=== PATIENT | female | born 1940 | race Caucasian/White ===

== ENCOUNTER 2023-01-03 17:46 | Emergency (ER) | payer MEDICARE, SELFPAY ==
--- NOTE | ~2023-01-03 | XR_ITS ---
EXAMINATION: XR chest 2V DATE: 01/03/2023 18:44 INDICATION: Shortness of breath and cough TECHNIQUE: Frontal and lateral views of the chest are obtained COMPARISON: 10/30/2012 FINDINGS: The lungs are free of acute opacities. No pleural effusion or pneumothorax. The cardiomedia stinal silhouette is normal. There is moderate thoracic spondylosis. There is been interval insertion of a dual lead pacemaker of the left chest wall. IMPRESSION: 1. No acute cardiopulmonary abnormality. Reviewed, dictated and finalized at location [facility]
[2023-01-03 18:00] VITALS: BP 105/73; PULSE 77; RESP 12; TEMP 36.8; O2SAT 97
--- NOTE | 2023-01-03 18:51 | ED.GENADULT ---
HPI - General Adult General Chief complaint: Upper Respiratory Infection Stated complaint: Sinus Source: patient Mode of arrival: ambulatory Limitations: no limitations History of Present Illness HPI narrative: Patient presents for evaluation of cough for the last few weeks. Reports associated low-grade fever, mild sore throat, nausea and shortness of breath. No chills, vomiting, or diarrhea. No recent sick contacts to her knowledge. she went to [facility] approximately a 1 week ago and had negative COVID, influenza, strep testing. She contacted her primary doctor just over a week ago and received azithromycin which she completed early last week. She has tried taking Mucinex for symptoms she is a former smoker and quit around the time of symptom onset. No personal history of COVID per her reports. Related Data Allergies Allergy/AdvReac Type Severity Reaction Status Date / Time Penicillins Allergy Mild Other Verified 01/03/23 18:09 Review of Systems Review of Systems: CONSTITUTIONAL: Reports fever. Denies chills, or sweats. EYES: Denies visual changes, redness, or discharge. ENT: Reports sore throat. Denies rhinorrhea, congestion, or otalgia. CARDIOVASCULAR: Denies chest pain, palpitations, or edema. RESPIRATORY: Reports cough and SOB. GASTROINTESTINAL: Reports nausea. Denies abdominal pain, vomiting, or diarrhea. GENITOURINARY: Denies dysuria or hematuria. SKIN: Denies rash or itching. MUSCULOSKELETAL: Denies back pain, joint pain, or myalgia. NEUROLOGIC: Denies headache, numbness, dizziness, or weakness. PSYCHIATRIC: Denies anxiety or depression. [facility] Past Medical History Medical History Cardiac arrhythmia Surgical History Surgical History History of permanent cardiac pacemaker placement Family History Family History Mother Family history non-contributory Social History Social History Smoking status: Former smoker Alcohol intake: never Living arrangements: with family Gender identity (if verbalized by the patient): Female Sexual Orientation (if Verbalized by the Patient): Straight or Heterosexual Spiritual care concerns: No Exam Narrative: GENERAL: Well-appearing, well-nourished, and in no acute distress. HEAD: Normocephalic, atraumatic. EYES: PERRLA and EOMI. ENT: Nares clear, no rhinorrhea or epistaxis. Mucous membranes moist. Oropharynx without tonsillar hypertrophy exudate or other lesions. Bilateral TMs pearly awad nonbulging NECK: Supple. No adenopathy or masses. No carotid bruits or JVD CHEST: Clear to auscultation. Cough present on exam. No respiratory distress. No wheezes rales or rhonchi HEART: Regular rate and rhythm. No murmur heard. Normal peripheral pulses. ABDOMEN: Soft, nontender, nondistended, normal active bowel sounds. EXTREMITIES: Normal range of motion. No edema. SKIN: Warm, dry, no rash. NEURO: No focal deficits. Alert and oriented x3. PSYCH: Normal mood and affect. Course Course Emergency Course: This is an 82-year-old female who presented for evaluation of sick symptoms. COVID, influenza, strep were all negative. Chest x-ray negative. Will treat with prednisone due to history of smoking, recent wheezing and previous favorable response to prednisone in the past. Follow up with primary provider. Go to the ER for worsening symptoms. Pt in agreement with plan of care. Level of Care: Express Care Visit Vital Signs Vital signs: Vital Signs Temperature 36.8 C 01/03/23 18:00 Pulse Rate 77 01/03/23 18:00 Respiratory Rate 12 01/03/23 18:00 Blood Pressure 105/73 01/03/23 18:00 Pulse Oximetry 97 01/03/23 18:00 Oxygen Delivery Room Air 01/03/23 18:00 Temperature 36.8 C 01/03/23 18:00
== END 2023-01-03 19:05 | disposition home or self-care (01) ==
PROVIDERS: Emergency Provider Nurse Practitioner; PCP Internal Medicine
DX: J06.9 Acute upper respiratory infection, unspecified (principal); Z20.822 Contact with and (suspected) exposure to COVID-19; Z87.891 Personal history of nicotine dependence; Z95.0 Presence of cardiac pacemaker
CPT/HCPCS: 71046; 87081; 87426; 87804; 87880; 99213; C9803; G0463

== ENCOUNTER 2024-07-18 18:43 | Emergency (ER) | payer MEDICARE, SELFPAY ==
[2024-07-18 18:58] VITALS: BP 127/65; PULSE 71; RESP 16; TEMP 36.8; O2SAT 97
--- NOTE | 2024-07-18 19:06 | ED.URI ---
HPI - URI/Sore Throat General Chief Complaint: Upper Respiratory Infection Stated Complaint: Sinus Time Seen by Provider: 07/18/24 19:00 Source: patient Mode of arrival: ambulatory Limitations: no limitations History of Present Illness HPI Narrative: Vita is an 83-year-old female patient presenting to the clinic today with complaints of sinus congestion, headache, Sore throat,runny nose, and some chest tightness times 2-3 days. She denies any known fever or chills. History of COPD. Has a productive cough. MD elicited complaint: sore throat and nasal congestion Related Data Home Medications Medication Instructions Recorded Confirmed albuterol sulfate 90 mcg/actuation 2 puff inhalation Q4-5H 07/18/24 07/18/24 aerosol inhaler atorvastatin 80 mg tablet 80 mg PO DAILY 07/18/24 07/18/24 budesonide 160 mcg-glycopyr 9 2 inh inhalation BID 07/18/24 07/18/24 mcg-formot 4.8 mcg/actuation HFA inhaler (Breztri Aerosphere) carvedilol 3.125 mg tablet 3.125 mg PO DAILY 07/18/24 07/18/24 clopidogrel 75 mg tablet 75 mg PO DAILY 07/18/24 07/18/24 ergocalciferol (vitamin D2) 1,250 1,250 mcg PO WEEKLY 07/18/24 07/18/24 mcg (50,000 unit) capsule losartan 25 mg tablet 25 mg PO DAILY 07/18/24 07/18/24 Allergies Allergy/AdvReac Type Severity Reaction Status Date / Time Penicillins Allergy Mild Other Verified 07/18/24 19:11 Review of Systems Review of Systems: Pertinent positives per HPI. Patient denies any fever, chills, rash, headache, visual changes, dizziness, cough, shortness of breath, chest pain, palpitations, nausea, vomiting, diarrhea, constipation, abdominal pain, or any urinary issues. [facility] Past Medical History Medical History Cardiac arrhythmia Surgical History Surgical History History of permanent cardiac pacemaker placement Family History Family History Mother Family history non-contributory Social History Social History Smoking status: Former smoker Alcohol intake: never Living arrangements: with family Gender identity (if verbalized by the patient): Female Sexual Orientation (if Verbalized by the Patient): Straight or Heterosexual Spiritual care concerns: No Comments At the time of my signature, I reviewed and agree with the nursing past medical, surgical, social, and family history. There is no relevant family history pertinent to the patient complaint. Exam Narrative: General: Well-developed, well nourished, in no apparent distress Head: Normocephalic, atraumatic Eyes: Pupils equally round and reactive to light bilaterally, EOM intact, sclera and conjunctive clear, no discharge, lids normal Ears: TMs intact and congested, ear canals clear, no drainage, grossly hearing normal. Nose: Nares patent, clear nasal discharge, no inflammation, no sinus tenderness. Mouth: Oral pharynx red without lesions or masses, good dentition, MMM. Neck: Supple, trachea midline, no enlargement of anterior or posterior cervical nodes, no thyroid masses or goiter palpable. Cardio: Regular rate and rhythm, s1 and s2 normal, no murmur appreciated. Resp: Expiratory wheezing, no rhonchi, rales, or rubs Course Course Emergency Course: Portions of this record may have been created with voice recognition software. Level of Care: Express Care Visit Vital Signs Vital signs: Vital Signs Temperature 36.8 C 07/18/24 18:58 Pulse Rate 71 07/18/24 18:58 Respiratory Rate 16 07/18/24 18:58 Blood Pressure 127/65 07/18/24 18:58 Pulse Oximetry 97 07/18/24 18:58 Oxygen Delivery Room Air 07/18/24 18:58 Temperature 36.8 C 07/18/24 18:58 Pulse Rate 71 07/18/24 18:58 Respiratory Rate 16 07/18/24 18:58 Blood Pressure 127/65
[2024-07-18 19:22] LABS: EDINFLUASCREEN Negative (Negative); EDINFLUBSCREEN Negative (Negative)
[2024-07-18 19:22] LABS: EDCOVIDSCREEN Negative (Negative)
== END 2024-07-18 19:24 | disposition home or self-care (01) ==
PROVIDERS: Emergency Provider Nurse Practitioner Family; PCP Internal Medicine
DX: J44.1 Chronic obstructive pulmonary disease with (acute) exacerbation (principal); J06.9 Acute upper respiratory infection, unspecified; Z20.822 Contact with and (suspected) exposure to COVID-19; Z87.891 Personal history of nicotine dependence
CPT/HCPCS: 87635; 87804; 99213; G0463

== ENCOUNTER 2025-01-11 07:51 | Outpatient (CLI) | payer MEDICARE, SELFPAY ==
--- OUTSIDE RECORDS SUMMARY | 2025-01-11 08:04 | XMS_ITS | Clinical Summary ---
Author Organization [email or web address] Address [address] [facility] [place] [address] Care Team Providers Care Core Loader Name Role Phone Ameena Jackson MD Primary Care Provider Source Comments [email or web address],non-owned Affiliates and Associated Physician Practices is amultiple site organization consisting of ambulatory clinics and hospital sitesin [place], [place], [place] and [place]. This disclosure is being madepursuant to the Care Everywhere program and may not contain all information available regarding this patient. Last updated 18.[email or web address] Allergies Active Allergy Reactions Criticality Noted Date Comments Penicillins Rash Medium 06/11/2023 Medications * Be aware that medications may not be up to date on this document. Alwaysverify current medications with the patient. Medication Sig Dispensed Refills Start Date End Date Status acetaminophen (Tylenol) 325 MG tablet Take 2 (two) tablets by mouth every 6 hours as needed Maximum allowable Acetaminophen amount = 4 Grams (4000 mg) / 24 hours. 06/14/2023 Active aspirin (Aspirin) 81 MG chew tablet Take 1 (one) tablet by mouth once daily 30 tablet 06/14/2023 Active albuterol-ipratrop ium (Duo-Neb) 0.5-2.5 (3) MG/3ML nebulizer solution Inhale 3 mL by mouth 4 times daily for 30 days 360 mL 06/14/2023 Active atorvastatin (Lipitor) 80 MG tablet Take 1 (one) tablet by mouth at bedtime 30 tablet 06/14/2023 Active losartan (Cozaar) 25 MG tablet Take 1 (one) tablet by mouth once daily 30 tablet 06/14/2023 Active carvedilol (Coreg) 3.125 MG tablet Take 1 (one) tablet by mouth 2 times daily with morning and evening meal 60 tablet 06/14/2023 Active clopidogrel (plaVIX) 75 MG tablet Take 1 (one) tablet by mouth once daily 30 tablet 06/14/2023 Active nicotine (Nicoderm CQ) 14 MG/24HR patchIndications:T obacco use disorder Apply 1 (one) patch to skin once daily 30 patch 06/14/2023 Active Active Problems Problem Noted Date Diagnosed Date NSTEMI (non-ST elevated myocardial infarction) 0 06/11/2023 Social History Tobacco Use Types Packs/Day Years Used Date Smoking Tobacco: Some Days Cigarettes Smokeless Tobacco: Never Tobacco Cessation:Ready to Q uit: Not Asked; Counseling Given: Not Answered Overall Financial Resource Strain (CARDIA) Answe r Date Recorded How hard is it for you to pa y for the very basics like food, housing, medical care, and heating? Not hard at all 06/13/2023 [facility] - Occupational Stress Questionnaire Answer Date Recorded Do you feel stress - tense, restless, nervous, or anxious, or unable to sleep at night because your mind is troubled all the time - these days? Not at all 06/13/2023 Hunger Vital Sign Answer Date Recorded Within the past 12 months, y ou worried that your food would run out before you got the money to buy more. Never true 06/14/20 23 Within the past 12 months, t he food you bought just didn't last and you didn't have money to get more. Never true 06/14/2023 PRAPARE - Transportation Answer Date Re corded In the past 12 months, has l ack of transportation kept you from medical appointments or from getting medications? No 06/01 In the past 12 months, has l ack of transportation kept you from meetings, work, or from getting things needed for daily living? No 06/13/2023 Housing Stability Vital Sign Answer Alex e Recorded In the last 12 months, was t here a time when you were not able to pay the mortgage or rent on time? No 06/13/2023 In the last 12 months, how many places have you lived? 1 06/13/2023 In the last 12 months, was t here a time when you did not have a steady place to sleep or slept in a fci (including now)? No 06/13/2023 Sex and Gender Information Value Date Recorded Sex Assigned at Not on file Gender Identity Not on file Sexual Orientation Not on file Last Filed Vital Signs Vital Sign Reading Time Taken Comments Blood Pressure 130/86 06/14/2023 8:01 AM CDT Pulse 60 06/14/2023 8:01 AM CDT Temperature 36.5 C (97.7 F) 06/14/2023 12:41 PM CDT Respiratory Rate 16 06/14/2023 8:01 AM CDT Oxygen Saturation 94% 06/14/2023 8:01 AM CDT Inhaled Oxygen Concentration 21% 06/14/2023 9 :56 AM CDT Weight 81.6 kg (180 lb) 06/14/2023 8:49 AM CDT Height 167.6 cm (5' 6 ) 06/14/2023 8:49 AM CDT Body Mass Index 29.05 06/14/2023 8:49 AM CDT Plan of Treatment Health Maintenance Due Date Last Done Comments BONE DENSITY TESTING 1942 DTAP/TDAP/TD VACCINES (1 - Tdap) 1961 PNEUMOCOCCAL VACCINE 50+ (1 of 2 - PCV) 1961 ZOSTER VACCINE (1 of 2) 1992 Respiratory Syncytial Virus (RSV) Vaccine Pt: or over 60 yrs (1 - 1-dose 75+ series) 2017 COVID-19 VACCINE ( season) 2024 10/30/2021, 01/19/2021, 12/29/2020 INFLUENZA VACCINE (#1) 2024 2, 09/16/2021, 10/23/2019, Additional history exists DEPRESSION SCREENING 11/01/2024 MEDICARE AWV CALENDAR YEAR 2024 HEPATITIS B VACCINE Aged Out No longe r eligible based on patient's age to complete this topic HIB VACCINE Aged Out No longer eligi ble based on patient's age to complete this topic HPV VACCINE Aged Out No longer eligi ble based on patient's age to complete this topic MENINGOCOCCAL (Group B) VACCINE SHARED DECISION-MAKING Aged Out No longer eligible based on patient's age to complete this topic MENINGOCOCCAL GROUPS A/C/Y/W VACCINE Aged Out No longer eligible based on patient's age to complete this topic Medical Devices Implanted Type Area Machine Bunch Maker Device Identifier Shelf Expiration Date Model / Serial / Lot Sys Cor Stent Sng Xd Mr 3mm 20mm Dlv Sys Implanted:Qty: 1 on 06/11/2023 by Geoff Josue MD at [facility] [id number] 06/01/2024 [id number] / NA / [id number] Advance Directives * Full Code (Latest Code Status on File) Date Activated Date Inactivated Comments 06/11/2023 6:59 PM 06/14/2023 4:00 PM Care Teams Core Loader Relationship Specialty Start Date End Date Ameena Jackson MD [address] [facility] [address] [place] [address] PCP - General Internal Medicine 06/12/23
--- OUTSIDE RECORDS SUMMARY | 2025-01-11 08:04 | XMS_ITS | Data Portability ---
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 Role Phone AMEENA JACKSON Primary Care Provider BENTON FRY Door To Door Fundraising Collector Assessment Encounter Date Assessment Date Assessment LastModified by Organization Details LastModified Time 10/19/2023 10/19/2023 07/03/2022: A1C 6.0 Urine micro alb/TSH/FT4/V IT D/CBC: WNL Chol 235, TG 218, HDL 37, LDL 154 CMP: BUN 26, Glcu 118 03/23/2023: A1C 5.5 Chol 230, TG 200, HDL 35, LDL 155 Gluc 114, BUN 22 07/22/2023: A1C 6.0 Gluc 120, BUN 24, glob 2.4L, TP WNL [email or web address] Not available 10/18/2023 13:35:35 03/07/2024 03/07/2024 07/03/2022: A1C 6.0 Urine micro alb/TSH/FT4/V IT D/CBC: WNL Chol 235, TG 218, HDL 37, LDL 154 CMP: BUN 26, Glcu 118 03/23/2023: A1C 5.5 Chol 230, TG 200, HDL 35, LDL 155 Gluc 114, BUN 22 07/22/2023: A1C 6.0 Gluc 120, BUN 24, glob 2.4L, TP WNL 03/02/2024: A1C 5.9 Gluc 115, BUN 26, TP 6.2, Glob 2.4<- advised on more protein in diet TG 156, LDL 111 Not available 03/05/2024 15:38:55 07/06/2024 07/06/2024 07/03/2022: A1C 6.0 Urine micro alb/TSH/FT4/V IT D/CBC: WNL Chol 235, TG 218, HDL 37, LDL 154 CMP: BUN 26, Glcu 118 03/23/2023: A1C 5.5 Chol 230, TG 200, HDL 35, LDL 155 Gluc 114, BUN 22 07/22/2023: A1C 6.0 Gluc 120, BUN 24, glob 2.4L, TP WNL 03/02/2024: A1C 5.9 Gluc 115, BUN 26, TP 6.2, Glob 2.4<- advised on more protein in diet TG 156, LDL 111 06/30/2024: A1C 5.9 VIT D 25.5 Gluc 110, BUN 21, TP 6.2 Chol 232, TG 168, LDL 150 Not available 07/04/2024 15:01:04 10/12/2024 10/12/2024 07/03/2022: A1C 6.0 Urine micro alb/TSH/FT4/V IT D/CBC: WNL Chol 235, TG 218, HDL 37, LDL 154 CMP: BUN 26, Glcu 118 03/23/2023: A1C 5.5 Chol 230, TG 200, HDL 35, LDL 155 Gluc 114, BUN 22 07/22/2023: A1C 6.0 Gluc 120, BUN 24, glob 2.4L, TP WNL 03/02/2024: A1C 5.9 Gluc 115, BUN 26, TP 6.2, Glob 2.4<- advised on more protein in diet TG 156, LDL 111 06/30/2024: A1C 5.9 VIT D 25.5 Gluc 110, BUN 21, TP 6.2 Chol 232, TG 168, LDL 150 10/09/2024: A1C 5.8 Gluc 108, BUN 20, TP 6.2L, Glob 2.3L Not available 10/11/2024 18:56:13 Plan of Treatment Reminders Order Date Submit Date Provider Last Modified By Organization Details Last Modified Time Details Appointments Any 15 2024 08:45A Sana pineda MD Not available Not available Not available Lab vitamin D, 25-hydrox y, total, serum 2023 024 [email or web address] [facility], [address] [place], [address], 10/12/2024 11:17:05 glycohemo globin, total, blood [address], [address] [place], [address], 10/12/2024 11:17:05 microalbu min, urine [address], [address] [place], [address], 10/12/2024 11:17:05 lipid panel, serum [address], [address] [place], [address], 10/12/2024 11:17:03 CMP, serum or plasma [address], [address] [place], [address], 10/12/2024 11:17:04 CBC w/ auto diff [address], [address] [place], [address], 10/12/2024 11:17:04 TSH, serum or plasma [address], [address] [place], [address], 10/12/2024 11:17:04 T4, free, serum [address], [address] [place], [address], 10/12/2024 11:17:04 vitamin D, 25-hydrox y, total, serum [address], [address] [place], [address], 01/09/2025 10:03:31 glycohemo globin, total, blood 2023 024 [facility], [address] [place], [address], 10/09/2024 12:15:47 microalbu min, urine 2023 024 [facility], [address] [place], [address], 10/09/2024 12:34:37 lipid panel, serum 2023 024 [facility], [address] [place], [address], 10/09/2024 13:07:21 CMP, serum or plasma 2023 024 [facility], [address] [place], [address], 10/09/2024 13:07:32 CBC w/ auto diff 2023 024 [facility], [address] [place], [address], 10/09/2024 11:28:09 TSH, serum or plasma 2023 024 [facility], [address] [place], [address], 10/09/2024 13:16:42 T4, free, serum 2023 024 [facility], [address] [place], [address], 10/09/2024 13:15:42 lipid panel, serum 2023 024 [facility], [address] [place], [address], 06/30/2024 10:55:10 CMP, serum or plasma 2023 024 [facility], [address] [place], [address], 06/30/2024 10:55:13 CBC w/ auto diff 2023 024 [facility], [address] [place], [address], 06/30/2024 10:57:57 TSH, serum or plasma 2023 024 [facility], [address] [place], [address], 06/30/2024 11:35:43 T4, free, serum 2023 024 [facility], [address] [place], [address], 06/30/2024 11:09:21 vitamin D, 25-hydrox y, total, serum 2023 024 [facility], [address] [place], [address], 07/03/2024 12:12:18 glycohemo globin, total, blood 2023 024 [facility], [address] [place], [address], 06/30/2024 15:07:40 microalbu min, urine 2023 024 [facility], [address] [place], [address], 06/30/2024 11:37:30 vitamin D, 25-hydrox y, total, serum [address], [address] [place], [address], 04/17/2024 09:38:10 glycohemo globin, total, blood 2022 023 [email or web address] [facility], [address] [place], [address], 04/17/2024 09:38:10 microalbu min, urine 2022 023 [email or web address] [facility], [address] [place], [address], 04/17/2024 09:38:10 lipid panel, serum 2022 023 [email or web address] [facility], [address] [place], [address], 04/17/2024 09:38:09 CMP, serum or plasma [email or web address], [address] [place], [address], 04/17/2024 09:38:09 CBC w/ auto diff 2022 023 [email or web address] [facility], [address] [place], [address], 04/17/2024 09:38:10 TSH, serum or plasma 2022 023 [email or web address] [facility], [address] [place], [address], 10/19/2023 10:23:12 T4, free, serum 2022 023 [email or web address] [facility], [address] [place], [address], 04/17/2024 09:38:10 Referral podiatris t referral - Please call patient to schedule. 2023 024 [email or web address] Celestino Graham DPM, [address], [address], [place], [address], 12/27/2024 09:39:33 pulmonolo gist referral - Please call patient to schedule. 2023 024 [email or web address] Harriet Rico WATER TREATMENT SPECIALIST-C, [address] [facility], [address], [place], [address], 12/27/2024 09:39:33 podiatris t referral 2023 024 [email or web address] Celestino Graham DPM, [address] [facility], [address], [place], [address], 07/06/2024 14:20:14 cardiolog ist referral 2023 024 [email or web address] Benton Fry MD, [address] [facility], [facility] [address], [place], [address], 07/06/2024 14:19:55 pulmonolo gist referral 2023 024 [email or web address] Chilo Osullivan MD, [address] [place], [address], 07/06/2024 14:20:15 pulmonolo gist referral 2023 024 [email or web address] Chilo Osullivan MD, [address] [place], [address], 09/05/2024 09:52:35 podiatris t referral 2023 024 [email or web address] Celestino Graham DPM, [address] [facility], [address], [place], [address], 09/05/2024 09:53:05 cardiolog ist referral 2023 024 [email or web address] Benton Fry MD, [address] [facility], [facility] [address], [place], [address], 10/02/2024 08:49:24 podiatris t referral 2022 023 [email or web address] Celestino Graham DPM, [address] [facility], [address], [place], [address], 04/17/2024 08:28:06 cardiolog ist referral 2022 023 [email or web address] Benton Fry MD, [address] [facility], [address], [place], [address], 11/16/2023 09:17:25 pulmonolo gist referral 2022 023 Chilo Osullivan MD, [address] [facility], [place], [address], 04/17/2024 08:27:47 Procedures None recorded. Surgeries None recorded. Imaging None recorded. Medication Orders Breztri Aerospher e 160 mcg-9mcg- 4.8mcg/ac tuation HFA aerosol inhaler 2023 024 [facility]armacy #[id number], [address] [facility], [place], [address], 10/12/2024 11:16:22 Zithromax Z-Eros 250 mg tablet 2023 024 [email or web address] [facility]/Pharmacy #[id number], [address], [place], [address], 10/12/2024 10:35:48 Flonase Allergy Relief 50 mcg/actua tion nasal spray,anna pension 2023 024 [email or web address] [facility]/Pharmacy #[id number], [address], [place], [address], 04/13/2024 17:20:52 Zyrtec 10 mg tablet 2023 024 [facility]/Pharmacy #[id number], [address], [place], [address], 03/22/2024 17:02:13 Breztri Aerospher e 160 mcg-9mcg- 4.8mcg/ac tuation HFA aerosol inhaler 2023 024 [facility]/Pharmacy #[id number], [address] , [place], [address], 03/07/2024 10:02:28 Patient TargetsNo targets recorded. Patient Instructions Encounter Date Encounter Id Patient Instructions Last Modified By Organization Details Last Modified Time 10/19/2023 [id number] diabetic eye exam* [email or web address] Not avail able 04/17/2024 08:43:30 03/07/2024 [id number] dementia rating scale-2* [email or web address] Not available 03/07/2024 17:57:27 alcohol misuse* [email or web address] 2 Not available 03/07/2024 17:57:27 depression screening* [email or web address] 2 Not available 03/07/2024 17:57:27 multi-dimensiona l health assessment questionnaire* [email or web address] 2 Not available 03/07/2024 17:57:27 Personalized [place] lt Plan and Screening Recommendations Advance Directives - Do you have one? No You have indicated that you are capable of preparing your advance care directive Advance Directives - Do we have your advance directive on file in your health record? Primary Prevention/Interven tion (prevents or decreases the chance of common diseases from occurring) Smoking Risk: Smoker Refer to attached smoking cessation handouts Alcohol Misuse Screening: Negative Refer to attached alcohol cessation handout Refer to attached handout and prescription will be sent to pharmacy Decrease alcohol intake to 1 or less servings per day Continue to consider stopping alcohol and call if we can assist you Weight: Appropriate Overwei ght continue your current weight loss efforts try to lose 5% of your body weight try to lose 10% of your body weight Physical activity: Need more exercise/physical activity minimum of 10-20 minutes of activity that causes mild breathlessness/day Nutrition: Good Average Refer to attached handout Heart-Healthy Diet: After Your Visit Fall Risk (screened today): Low Intermediate Refer to attached handout Preventing Falls: After your Visit Vaccines Pneumococcal: Ordered Recommended today Recommended today, but you have declined No further needed Influenza: Your next one in the fall of this year Chronic Disease Risks Stroke: Low Risk Intermediate Risk Heart Attack: Low risk Intermediate Risk Clogging of the Arteries: Low risk Intermediate Risk Diabetes: High Risk I have no recommendations Ref er to attached handout Pre-diabetes: After Your Visit Drastically limit sugar and products made with any type of flour (bread, pasta, cereal, cookies, crackers, etc.) Secondary Prevention/Interven tion (detects treatable diseases before they may cause symptoms, disability, or ) Breast Cancer Screening with mammogram: Your next mammogram: Ordered Recommended today Recommended today, but you have declined Cervical/Uterine/Ov zaida Cancer Screening: Your next PAP/pelvic in: Referral to salesperson pets and pet supplies Recomm ended today Recommended today, but you have declined Osteoporosis Screening: Your next DEXA in: Ordered Recomme nded today Recommended today, but you have declined Date Screening Last Performed: Colon Cancer Screening: Colonoscopy Date Screening Last Performed: Patient declined Eye Disease Screening: Ordered Recommended today Dementia Risk: Low I have no recommendations Depression Screening: Negative [email or web address] Not available 03/07/2024 11:19:12 Reason for Referral Door To Door Fundraising Collector Referral for Es sential hypertension Referring Physician: Ameena Jackson Internal Medicine, Encounter Date: 10/19/2023 Order Editor Referral for Type 2 diabetes mellitus without complication Referring Physician: Constanza Leroy Medicine, Encounter Date: 10/19/2023 Sql Database Developer Referral for C hronic obstructive pulmonary disease Referring Physician: Constanza Leroy, Encounter Date: 10/19/2023 Door To Door Fundraising Collector Referral for Es sential hypertension Referring Physician: Constanza Leroy, Encounter Date: 03/07/2024 Order Editor Referral for Type 2 diabetes mellitus without complication Referring Physician: Constanza Leroy Medicine, Encounter Date: 03/07/2024 Sql Database Developer Referral for C hronic obstructive pulmonary disease Referring Physician: Constanza Leroy, Encounter Date: 03/07/2024 Door To Door Fundraising Collector Referral for Es sential hypertension Referring Physician: Constanza Leroy, Encounter Date: 07/06/2024 Order Editor Referral for Type 2 diabetes mellitus without complication Referring Physician: Ameena Jackson Internal Medicine, Encounter Date: 07/06/2024 Sql Database Developer Referral for C hronic obstructive pulmonary disease Referring Physician: Ameena Jackson Internal Medicine, Encounter Date: 07/06/2024 Order Editor Referral for Type 2 diabetes mellitus without complication Please call patient to schedule. Referring Physician: Ameena Jackson Internal Medicine, Encounter Date: 10/12/2024 Sql Database Developer Referral for C hronic obstructive pulmonary disease Please call patient to schedule. Referring Physician: Ameena Jackson Internal Medicine, Encounter Date: 10/12/2024 Results Created Date Observation Date Name Description Value Unit Range Abnormal Flag Note LastModifiedBy Organization Detail LastModifiedTime 03/02/20 24 03/02/2024 CBC/C OMPLE TE BLD COUNT W/DIF F white blood cells 6.5 x10'3 /uL 4.2-10 .8 Not Available [facility] (Lab) [address] [place], [address], 03/02/2024 10:48:27 03/02/20 24 03/02/2024 CBC/C OMPLE TE BLD COUNT W/DIF F red blood cells 4.36 x10'6 /uL 3.80-5 .20 Not Available [facility] (Lab) [address] [place], [address], 03/02/2024 10:48:27 03/02/20 24 03/02/2024 CBC/C OMPLE TE BLD COUNT W/DIF F hemoglobin 13.4 g/dL 12.0-1 5.6 Not Available [facility] (Lab) [address] [place], [address], 03/02/2024 10:48:27 03/02/20 24 03/02/2024 CBC/C OMPLE TE BLD COUNT W/DIF F hematocrit 40.6 % 35.7-4 5.7 Not Available [facility] (Lab) [address] [place], [address], 03/02/2024 10:48:27 03/02/20 24 03/02/2024 CBC/C OMPLE TE BLD COUNT W/DIF F mean red cell volume 93.1 fL 82.0-9 9.0 Not Available [facility] (Lab) [address] [place], [address], 03/02/2024 10:48:27 03/02/20 24 03/02/2024 CBC/C OMPLE TE BLD COUNT W/DIF F mean red cell hemoglobin 30.7 pg 27.0-3 3.0 Not Available [facility] (Lab) [address] [place], [address], 03/02/2024 10:48:27 03/02/20 24 03/02/2024 CBC/C OMPLE TE BLD COUNT W/DIF F mean RBC HGB concentratio n 33.0 g/dL 31.0-3 6.0 Not Available [facility] (Lab) [address] [place], [address], 03/02/2024 10:48:27 03/02/20 24 03/02/2024 CBC/C OMPLE TE BLD COUNT W/DIF F red cell distribution width 13.2 % 11.8-1 5.5 Not Available [facility] (Lab) [address] [place], [address], 03/02/2024 10:48:27 03/02/20 24 03/02/2024 CBC/C OMPLE TE BLD COUNT W/DIF F platelets 228 x10'3 /uL 150-40 0 Not Available [facility] (Lab) [address] [place], [address], 03/02/2024 10:48:27 03/02/20 24 03/02/2024 CBC/C OMPLE TE BLD COUNT W/DIF F mean platelet volume 10.5 fL 9.0-12 .4 Not Available [facility] (Lab) [address] [place], [address], 03/02/2024 10:48:27 03/02/20 24 03/02/2024 CBC/C OMPLE TE BLD COUNT W/DIF F neutrophils 51.7 % 39.0-7 2.0 Not Available [facility] (Lab) [address] [place], [address], 03/02/2024 10:48:27 03/02/20 24 03/02/2024 CBC/C OMPLE TE BLD COUNT W/DIF F lymphocytes 34.7 % 16.0-4 7.0 Not Available [facility] (Lab) [address] [place], [address], 03/02/2024 10:48:27 03/02/20 24 03/02/2024 CBC/C OMPLE TE BLD COUNT W/DIF F monocytes 9.0 % 5.0-12 .0 Not Available [facility] (Lab) [address] [place], [address], 03/02/2024 10:48:27 03/02/20 24 03/02/2024 CBC/C OMPLE TE BLD COUNT W/DIF F eosinophils 3.7 % 1.0-7. 0 Not Available [facility] (Lab) [address] [place], [address], 03/02/2024 10:48:27 03/02/20 24 03/02/2024 CBC/C OMPLE TE BLD COUNT W/DIF F basophils 0.6 % 0.0-2. 0 Not Available [facility] (Lab) [address] [place], [address], 03/02/2024 10:48:27 03/02/20 24 03/02/2024 CBC/C OMPLE TE BLD COUNT W/DIF F immature granulocytes 0.3 % 0.00-0 .50 Not Available [facility] (Lab) [address] [place], [address], 03/02/2024 10:48:27 03/02/20 24 03/02/2024 CBC/C OMPLE TE BLD COUNT W/DIF F neutrophils, absolute count 3.33 x10'3 /uL 1.5-8. 0 Not Available [facility] (Lab) [address] [place], [address], 03/02/2024 10:48:27 03/02/20 24 03/02/2024 CBC/C OMPLE TE BLD COUNT W/DIF F lymphocytes, absolute count 2.24 x10'3 /uL 1.07-3 .43 Not Available [facility] (Lab) [address] [place], [address], 03/02/2024 10:48:27 03/02/20 24 03/02/2024 CBC/C OMPLE TE BLD COUNT W/DIF F monocytes, absolute count 0.58 x10'3 /uL 0.29-0 .99 Not Available [facility] (Lab) [address] [place], [address], 03/02/2024 10:48:27 03/02/20 24 03/02/2024 CBC/C OMPLE TE BLD COUNT W/DIF F eosinophils, absolute count 0.24 x10'3 /uL 0.02-0 .53 Not Available [facility] (Lab) [address] [place], [address], 03/02/2024 10:48:27 03/02/20 24 03/02/2024 CBC/C OMPLE TE BLD COUNT W/DIF F basophils, absolute count 0.04 x10'3 /uL 0.01-0 .08 Not Available [facility] (Lab) [address] [place], [address], 03/02/2024 10:48:27 03/02/20 24 03/02/2024 CBC/C OMPLE TE BLD COUNT W/DIF F immature granulocytes ,absolute 0.02 x10'3 /uL 0.00-0 .05 Not Available [facility] (Lab) [address] [place], [address], 03/02/2024 10:48:27 03/02/20 24 03/02/2024 CBC/C OMPLE TE BLD COUNT W/DIF F nucleated red blood cells 0.0 % -0 Not Available [facility] (Lab) [address] [place], [address], 03/02/2024 10:48:27 03/02/20 24 03/02/2024 CBC/C OMPLE TE BLD COUNT W/DIF F NRBC# 0.00 x10'3 /uL Not Available [facility] (Lab) [address] [place], [address], 03/02/2024 10:48:27 03/02/20 24 03/02/2024 LIPID PANEL cholesterol 191 mg/dL 140-19 9 NIH NIKOLE NSUS RECOM MENDA TION FOR TONYA STERO L: ADULT CHILD LOW RISK: <200 <170 BORDE RLINE : <200- 239 ----- HIGH RISK: >240 >200 Not Available [facility] (Lab) [address] [place], [address], 03/02/2024 11:15:57 03/02/20 24 03/02/2024 LIPID PANEL triglyceride s 156 mg/dL 0-150 high NIH NIKOLE NSUS REPOR T RECOM MENDA TION FOR TRIGL YCERI KAYLEN: ADULT CHILD LOW RISK: <150 ----- BODER LINE: 150-1 99 ----- HIGH RISK: >200 ----- Not Available [facility] (Lab) [address] [place], [address], 03/02/2024 11:15:57 03/02/20 24 03/02/2024 LIPID PANEL HDL cholesterol 49 mg/dL 40- Not Available [facility] (Lab) [address] [place], [address], 03/02/2024 11:15:57 03/02/20 24 03/02/2024 LIPID PANEL LDL cholesterol, calculated 111 mg/dL 0-130 NIH NIKOLE NSUS REPOR T RECOM MENDA TIONS FOR LDL: ADULT CHILD LOW RISK <130 <110 (OPTI MAL LDL) <100 ----- BORDE RLINE : 130-1 59 ----- HIGH RISK: >160 >130 A TRIGL YCERI DE RESUL T >400 INVAL IDATE S THE CALCU LATIO N FOR LDL FRACT IONAT ION - THE LDL RESUL T WILL NOT BE REPOR WARREN. Not Available [facility] (Lab) [address] [place], [address], 03/02/2024 11:15:57 03/02/20 24 03/02/2024 COMPR EHENS EDEL METAB OLIC PANEL sodium 140 mmol/ L 137-14 5 Not Available [facility] (Lab) [address] [place], [address], 03/02/2024 11:16:03 03/02/20 24 03/02/2024 COMPR EHENS EDEL METAB OLIC PANEL potassium 4.5 mmol/ L 3.5-5. 1 Not Available [facility] (Lab) [address] [place], [address], 03/02/2024 11:16:03 03/02/20 24 03/02/2024 COMPR EHENS EDEL METAB OLIC PANEL chloride 105 mmol/ L 98-107 Not Available [facility] (Lab) [address] [place], [address], 03/02/2024 11:16:03 03/02/20 24 03/02/2024 COMPR EHENS EDEL METAB OLIC PANEL carbon dioxide 31 mmol/ L 22-30 high Not Available [facility] (Lab) [address] [place], [address], 03/02/2024 11:16:03 03/02/20 24 03/02/2024 COMPR EHENS EDEL METAB OLIC PANEL anion gap 8.5 mmol/ L 14-22 low Not Available [facility] (Lab) [address] [place], [address], 03/02/2024 11:16:03 03/02/20 24 03/02/2024 COMPR EHENS EDEL METAB OLIC PANEL glucose 115 mg/dL 70-99 high Not Available [facility] (Lab) [address] [place], [address], 03/02/2024 11:16:03 03/02/20 24 03/02/2024 COMPR EHENS EDEL METAB OLIC PANEL BUN 26 mg/dL 8-19 high Not Available [facility] (Lab) [address] [place], [address], 03/02/2024 11:16:03 03/02/20 24 03/02/2024 COMPR EHENS EDEL METAB OLIC PANEL creatinine 0.82 mg/dL 0.66-1 .25 Not Available [facility] (Lab) [address] [place], [address], 03/02/2024 11:16:03 03/02/20 24 03/02/2024 COMPR EHENS EDEL METAB OLIC PANEL GFR >60 Refer ence Range : Costilla ge GFR Healt hy Adult : >60 mL/mi n/1.7 3 m2 Chron ic Kidne y Disea se: 15-60 mL/mi n/1.7 3 m2 Kidne y Failu re: <15/m L/min /1.73 m2 www.n iddk. nih.g ov The MDRD study equat ion has not been valid ated in child graciela <18 years of age; pregn ant women ; the elder ly >85 years of age; or in some racia l or ethni c subgr oups, such as Hispa nics. Outsi de the valid ated ronnell eters , estim ated GFR is less accur ate, requi ring clini [place] judgm ent on a case- by-ca se basis . Clini [place] inter preta tion for other races and ages must be made by the clini rich. The MDRD study equat ion has not been valid ated for the evalu ation of serum creat inine relat ed to nutri candido l statu s or medic ation usage . For perso ns <18 years of age, a pedia tric GFR calcu lator is avail able on the [facility] websi te: https ://ww w.kid ric.o rg/pr ofess ional s/kdo qi/gf r_cal culat or Not Available [facility] (Lab) [address] [place], [address], 03/02/2024 11:16:03 03/02/20 24 03/02/2024 COMPR EHENS EDEL METAB OLIC PANEL alkaline phosphatase 51 U/L 38-126 Not Available [facility] (Lab) [address] [place], [address], 03/02/2024 11:16:03 03/02/20 24 03/02/2024 COMPR EHENS EDEL METAB OLIC PANEL alanine aminotransfe rase 27 U/L 0-35 Not Available [facility] (Lab) [address] [place], [address], 03/02/2024 11:16:03 03/02/20 24 03/02/2024 COMPR EHENS EDEL METAB OLIC PANEL aspartate aminotransfe rase 29 U/L 15-37 Not Available [facility] (Lab) [address] [place], [address], 03/02/2024 11:16:03 03/02/20 24 03/02/2024 COMPR EHENS EDEL METAB OLIC PANEL bilirubin, total 0.60 mg/dL 0.20-1 .30 Not Available [facility] (Lab) [address] [place], [address], 03/02/2024 11:16:03 03/02/20 24 03/02/2024 COMPR EHENS EDEL METAB OLIC PANEL calcium 9.2 mg/dL 8.4-10 .2 Not Available [facility] (Lab) [address] [place], [address], 03/02/2024 11:16:03 03/02/20 24 03/02/2024 COMPR EHENS EDEL METAB OLIC PANEL total protein 6.2 g/dL 6.3-8. 2 low Not Available [facility] (Lab) [address] [place], [address], 03/02/2024 11:16:03 03/02/20 24 03/02/2024 COMPR EHENS EDEL METAB OLIC PANEL albumin 3.8 g/dL 3.0-4. 4 Not Available [facility] (Lab) [address] [place], [address], 03/02/2024 11:16:03 03/02/20 24 03/02/2024 COMPR EHENS EDEL METAB OLIC PANEL globulin 2.4 g/dL 2.6-4. 2 low Not Available [facility] (Lab) [address] [place], [address], 03/02/2024 11:16:03 03/02/20 24 03/02/2024 COMPR EHENS EDEL METAB OLIC PANEL A/G ratio 1.6 ratio 1.0-2. 0 Not Available [facility] (Lab) [address] [place], [address], 03/02/2024 11:16:03 03/02/20 24 03/02/2024 TSH thyroid-stim ulating hormone 2.210 uIU/m L 0.465- 4.680 Not Available [facility] (Lab) [address] [place], [address], 03/02/2024 11:40:00 03/02/20 24 03/02/2024 T4 FREE free T4 1.00 NG/dL 0.78-2 .19 Not Available [facility] (Lab) [address] [place], [address], 03/02/2024 11:40:10 03/02/20 24 03/02/2024 VITAM IN D 25-HY DROXY [id number] 31.5 NG/mL 30-100 Vitam in D Statu s: Defic ient: <20 ng/mL Insuf ficie nt: 20-29 ng/mL Suffi cient : 30-10 0 ng/mL Not Available [facility] (Lab) [address] [place], [address], 03/02/2024 12:12:53 03/02/20 24 03/02/2024 HEMOG LOBIN A1C HA1C 5.9 % 4.0-6. 0 Diabe madyson Scree vicente Crite ascencion: <5.7% Consi stent with absen ce of diabe madyson 5.7-6 .4% Consi stent with incre ased risk for diabe madyson (pred iabet es) >OR=6 .5% Consi stent with diabe madyson REFER ENCE: Diabe madyson Care 2016, 39(Alejo ppl.1 ):s13 -s22 Not Available [facility] (Lab) [address] [place], [address], 03/02/2024 16:24:47 03/02/20 24 03/02/2024 MICRO ALBUM IN RANDO M URINE microalbumin , urine <6.0 mg/L 0.0-16 .6 Not Available [facility] (Lab) [address] [place], [address], 03/02/2024 16:44:32 06/30/20 24 06/30/2024 LIPID PANEL cholesterol 232 mg/dL 140-19 9 high NIH NIKOLE NSUS RECOM MENDA TION FOR TONYA STERO L: ADULT CHILD LOW RISK: <200 <170 BORDE RLINE : <200- 239 ----- HIGH RISK: >240 >200 Not Available [facility] (Lab) [address] [place], [address], 06/30/2024 10:55:10 06/30/20 24 06/30/2024 LIPID PANEL triglyceride s 168 mg/dL 0-150 high NIH NIKOLE NSUS REPOR T RECOM MENDA TION FOR TRIGL YCERI KAYLEN: ADULT CHILD LOW RISK: <150 ----- BODER LINE: 150-1 99 ----- HIGH RISK: >200 ----- Not Available [facility] (Lab) [address] [place], [address], 06/30/2024 10:55:10 06/30/20 24 06/30/2024 LIPID PANEL HDL cholesterol 48 mg/dL 40- Not Available [facility] (Lab) [address] [place], [address], 06/30/2024 10:55:10 06/30/20 24 06/30/2024 LIPID PANEL LDL cholesterol, calculated 150 mg/dL 0-130 high NIH NIKOLE NSUS REPOR T RECOM MENDA TIONS FOR LDL: ADULT CHILD LOW RISK <130 <110 (OPTI MAL LDL) <100 ----- BORDE RLINE : 130-1 59 ----- HIGH RISK: >160 >130 A TRIGL YCERI DE RESUL T >400 INVAL IDATE S THE CALCU LATIO N FOR LDL FRACT IONAT ION - THE LDL RESUL T WILL NOT BE REPOR WARREN. Not Available [facility] (Lab) [address] [place], [address], 06/30/2024 10:55:10 06/30/20 24 06/30/2024 COMPR EHENS EDEL METAB OLIC PANEL sodium 139 mmol/ L 137-14 5 Not Available [facility] (Lab) [address] [place], [address], 06/30/2024 10:55:13 06/30/20 24 06/30/2024 COMPR EHENS EDEL METAB OLIC PANEL potassium 4.3 mmol/ L 3.5-5. 1 Not Available [facility] (Lab) [address] [place], [address], 06/30/2024 10:55:13 06/30/20 24 06/30/2024 COMPR EHENS EDEL METAB OLIC PANEL chloride 110 mmol/ L 98-107 high Not Available [facility] (Lab) [address] [place], [address], 06/30/2024 10:55:13 06/30/20 24 06/30/2024 COMPR EHENS EDEL METAB OLIC PANEL carbon dioxide 28 mmol/ L 22-30 Not Available [facility] (Lab) [address] [place], [address], 06/30/2024 10:55:13 06/30/20 24 06/30/2024 COMPR EHENS EDEL METAB OLIC PANEL anion gap 5.3 mmol/ L 14-22 low Not Available [facility] (Lab) [address] [place], [address], 06/30/2024 10:55:13 06/30/20 24 06/30/2024 COMPR EHENS EDEL METAB OLIC PANEL glucose 110 mg/dL 70-99 high Not Available [facility] (Lab) [address] [place], [address], 06/30/2024 10:55:13 06/30/20 24 06/30/2024 COMPR EHENS EDEL METAB OLIC PANEL BUN 21 mg/dL 8-19 high Not Available [facility] (Lab) [address] [place], [address], 06/30/2024 10:55:13 06/30/20 24 06/30/2024 COMPR EHENS EDEL METAB OLIC PANEL creatinine 0.87 mg/dL 0.66-1 .25 Not Available [facility] (Lab) [address] [place], [address], 06/30/2024 10:55:13 06/30/20 24 06/30/2024 COMPR EHENS EDEL METAB OLIC PANEL GFR >60 Refer ence Range : Costilla ge GFR Healt hy Adult : >60 mL/mi n/1.7 3 m2 Chron ic Kidne y Disea se: 15-60 mL/mi n/1.7 3 m2 Kidne y Failu re: <15/m L/min /1.73 m2 www.n iddk. nih.g ov The MDRD study equat ion has not been valid ated in child graciela <18 years of age; pregn ant women ; the elder ly >85 years of age; or in some racia l or ethni c subgr oups, such as Kristine nics. Outsi de the valid ated ronnell eters , estim ated GFR is less accur ate, requi ring clini [place] jud[facility] ent on a case- by-ca se basis . Clini [place] inter preta tion for other races and ages must be made by the clini rich. The MDRD study equat ion has not been valid ated for the evalu ation of serum creat inine relat ed to nutri candido l statu s or medic ation usage . For perso ns <18 years of age, a pedia tric GFR calcu lator is avail able on the [facility] websi te: https ://indio larios.babatunde rg/pr ofess ional s/kdo qi/gf r_cal culat or Not Available [facility] (Lab) [address] [place], [address], 06/30/2024 10:55:13 06/30/20 24 06/30/2024 COMPR EHENS EDEL METAB OLIC PANEL alkaline phosphatase 40 U/L 38-126 Not Available [facility] (Lab) [address] [place], [address], 06/30/2024 10:55:13 06/30/20 24 06/30/2024 COMPR EHENS EDEL METAB OLIC PANEL alanine aminotransfe rase 17 U/L 0-35 Not Available [facility] (Lab) [address] [place], [address], 06/30/2024 10:55:13 06/30/20 24 06/30/2024 COMPR EHENS EDEL METAB OLIC PANEL aspartate aminotransfe rase 19 U/L 15-37 Not Available [facility] (Lab) [address] [place], [address], 06/30/2024 10:55:13 06/30/20 24 06/30/2024 COMPR EHENS EDEL METAB OLIC PANEL bilirubin, total 0.50 mg/dL 0.20-1 .30 Not Available [facility] (Lab) [address] [place], [address], 06/30/2024 10:55:13 06/30/20 24 06/30/2024 COMPR EHENS EDEL METAB OLIC PANEL calcium 8.9 mg/dL 8.4-10 .2 Not Available [facility] (Lab) [address] [place], [address], 06/30/2024 10:55:13 06/30/20 24 06/30/2024 COMPR EHENS EDEL METAB OLIC PANEL total protein 6.2 g/dL 6.3-8. 2 low Not Available [facility] (Lab) [address] [place], [address], 06/30/2024 10:55:13 06/30/20 24 06/30/2024 COMPR EHENS EDEL METAB OLIC PANEL albumin 3.7 g/dL 3.0-4. 4 Not Available [facility] (Lab) [address] [place], [address], 06/30/2024 10:55:13 06/30/20 24 06/30/2024 COMPR EHENS EDEL METAB OLIC PANEL globulin 2.5 g/dL 2.6-4. 2 low Not Available [facility] (Lab) [address] [place], [address], 06/30/2024 10:55:13 06/30/20 24 06/30/2024 COMPR EHENS EDEL METAB OLIC PANEL A/G ratio 1.5 ratio 1.0-2. 0 Not Available [facility] (Lab) [address] [place], [address], 06/30/2024 10:55:13 06/30/20 24 06/30/2024 CBC/C OMPLE TE BLD COUNT W/DIF F white blood cells 5.7 x10'3 /uL 4.2-10 .8 Not Available [facility] (Lab) [address] [place], [address], 06/30/2024 10:57:57 06/30/20 24 06/30/2024 CBC/C OMPLE TE BLD COUNT W/DIF F red blood cells 4.52 x10'6 /uL 3.80-5 .20 Not Available [facility] (Lab) [address] [place], [address], 06/30/2024 10:57:57 06/30/20 24 06/30/2024 CBC/C OMPLE TE BLD COUNT W/DIF F hemoglobin 13.7 g/dL 12.0-1 5.6 Not Available [facility] (Lab) [address] [place], [address], 06/30/2024 10:57:57 06/30/20 24 06/30/2024 CBC/C OMPLE TE BLD COUNT W/DIF F hematocrit 41.9 % 35.7-4 5.7 Not Available [facility] (Lab) [address] [place], [address], 06/30/2024 10:57:57 06/30/20 24 06/30/2024 CBC/C OMPLE TE BLD COUNT W/DIF F mean red cell volume 92.7 fL 82.0-9 9.0 Not Available [facility] (Lab) [address] [facility] [place] [place], [address], 06/30/2024 10:57:57 06/30/20 24 06/30/2024 CBC/C OMPLE TE BLD COUNT W/DIF F mean red cell hemoglobin 30.3 pg 27.0-3 3.0 Not Available [facility] (Lab) [address] [facility] [place] [place], [address], 06/30/2024 10:57:57 06/30/20 24 06/30/2024 CBC/C OMPLE TE BLD COUNT W/DIF F mean RBC HGB concentratio n 32.7 g/dL 31.0-3 6.0 Not Available [facility] (Lab) [address] [place], [address], 06/30/2024 10:57:57 06/30/20 24 06/30/2024 CBC/C OMPLE TE BLD COUNT W/DIF F red cell distribution width 13.3 % 11.8-1 5.5 Not Available [facility] (Lab) [address] [place], [address], 06/30/2024 10:57:57 06/30/20 24 06/30/2024 CBC/C OMPLE TE BLD COUNT W/DIF F platelets 240 x10'3 /uL 150-40 0 Not Available [facility] (Lab) [address] [place], [address], 06/30/2024 10:57:57 06/30/20 24 06/30/2024 CBC/C OMPLE TE BLD COUNT W/DIF F mean platelet volume 10.2 fL 9.0-12 .4 Not Available [facility] (Lab) [address] [place], [address], 06/30/2024 10:57:57 06/30/20 24 06/30/2024 CBC/C OMPLE TE BLD COUNT W/DIF F neutrophils 56.2 % 39.0-7 2.0 Not Available [facility] (Lab) [address] [place], [address], 06/30/2024 10:57:57 06/30/20 24 06/30/2024 CBC/C OMPLE TE BLD COUNT W/DIF F lymphocytes 31.5 % 16.0-4 7.0 Not Available [facility] (Lab) [address] [place], [address], 06/30/2024 10:57:57 06/30/20 24 06/30/2024 CBC/C OMPLE TE BLD COUNT W/DIF F monocytes 8.0 % 5.0-12 .0 Not Available [facility] (Lab) [address] [place], [address], 06/30/2024 10:57:57 06/30/20 24 06/30/2024 CBC/C OMPLE TE BLD COUNT W/DIF F eosinophils 3.5 % 1.0-7. 0 Not Available [facility] (Lab) [address] [place], [address], 06/30/2024 10:57:57 06/30/20 24 06/30/2024 CBC/C OMPLE TE BLD COUNT W/DIF F basophils 0.5 % 0.0-2. 0 Not Available [facility] (Lab) [address] [place], [address], 06/30/2024 10:57:57 06/30/20 24 06/30/2024 CBC/C OMPLE TE BLD COUNT W/DIF F immature granulocytes 0.3 % 0.00-0 .50 Not Available [facility] (Lab) [address] [place], [address], 06/30/2024 10:57:57 06/30/20 24 06/30/2024 CBC/C OMPLE TE BLD COUNT W/DIF F neutrophils, absolute count 3.22 x10'3 /uL 1.5-8. 0 Not Available [facility] (Lab) [address] [place], [address], 06/30/2024 10:57:57 06/30/20 24 06/30/2024 CBC/C OMPLE TE BLD COUNT W/DIF F lymphocytes, absolute count 1.81 x10'3 /uL 1.07-3 .43 Not Available [facility] (Lab) [address] [place], [address], 06/30/2024 10:57:57 06/30/20 24 06/30/2024 CBC/C OMPLE TE BLD COUNT W/DIF F monocytes, absolute count 0.46 x10'3 /uL 0.29-0 .99 Not Available [facility] (Lab) [address] [place], [address], 06/30/2024 10:57:57 06/30/20 24 06/30/2024 CBC/C OMPLE TE BLD COUNT W/DIF F eosinophils, absolute count 0.20 x10'3 /uL 0.02-0 .53 Not Available [facility] (Lab) [address] [place], [address], 06/30/2024 10:57:57 06/30/20 24 06/30/2024 CBC/C OMPLE TE BLD COUNT W/DIF F basophils, absolute count 0.03 x10'3 /uL 0.01-0 .08 Not Available [facility] (Lab) [address] [place], [address], 06/30/2024 10:57:57 06/30/20 24 06/30/2024 CBC/C OMPLE TE BLD COUNT W/DIF F immature granulocytes ,absolute 0.02 x10'3 /uL 0.00-0 .05 Not Available [facility] (Lab) [address] [place], [address], 06/30/2024 10:57:57 06/30/20 24 06/30/2024 CBC/C OMPLE TE BLD COUNT W/DIF F nucleated red blood cells 0.0 % -0 Not Available [facility] (Lab) [address] [place], [address], 06/30/2024 10:57:57 06/30/20 24 06/30/2024 CBC/C OMPLE TE BLD COUNT W/DIF F NRBC# 0.00 x10'3 /uL Not Available [facility] (Lab) [address] [place], [address], 06/30/2024 10:57:57 06/30/20 24 06/30/2024 T4 FREE free T4 0.94 NG/dL 0.78-2 .19 Not Available [facility] (Lab) [address] [place], [address], 06/30/2024 11:09:21 06/30/20 24 06/30/2024 VITAM IN D 25-HY DROXY [id number] 25.5 NG/mL 30-100 low Vitam in D Statu s: Defic ient: <20 ng/mL Insuf ficie nt: 20-29 ng/mL Suffi cient : 30-10 0 ng/mL Not Available [facility] (Lab) [address] [place], [address], 06/30/2024 11:14:21 06/30/20 24 06/30/2024 TSH thyroid-stim ulating hormone 1.350 uIU/m L 0.465- 4.680 Not Available [facility] (Lab) [address] [place], [address], 06/30/2024 11:35:43 06/30/20 24 06/30/2024 MICRO ALBUM IN RANDO M URINE microalbumin , urine 14.8 mg/L 0.0-16 .6 Not Available [facility] (Lab) [address] [place], [address], 06/30/2024 11:37:30 06/30/20 24 06/30/2024 HEMOG LOBIN A1C HA1C 5.9 % 4.0-6. 0 Diabe madyson Scree vicente Crite ascencion: <5.7% Consi stent with absen ce of diabe madyson 5.7-6 .4% Consi stent with incre ased risk for diabe madyson (pred iabet es) >OR=6 .5% Consi stent with diabe madyson REFER ENCE: Diabe madyson Care 2016, 39(Alejo ppl.1 ):s13 -s22 Not Available [facility] (Lab) [address] [place], [address], 06/30/2024 15:07:40 Result Notes None recorded. Problems Name Problem SNOMED Code Status Onset Date Resolution Date Notes Provider Name and Address Organization Details Recorded Time Essential hypertension 30281112 Active 2022 Not Available [facility] 3 00:14:21 Chronic obstructive pulmonary disease 50101486 Active 2022 Not Available [facility] 3 00:14:21 Smoker 53290963 Active 2022 Not Available [facility] 3 00:14:21 Coronary arteriosclero sis 97451810 Active 2022 Not Available [facility] 3 00:14:21 COVID-19 009130163 Active 2023 Kayla Heck RN null, [facility] 4 12:08:52 Hypothyroidis m 85020111 Active 2023 FRANK Salgado, [facility] 4 16:02:59 Type 2 diabetes mellitus without complication 620788668 Active 2021 Not Available [facility] 3 00:14:21 Vitamin D deficiency 12494248 Active 2021 Not Available [facility] 3 00:14:21 Multiple joint pain 37555060 Active 2021 Not Available [facility] 3 00:14:21 Upper respiratory infection 98458730 Active 2022 Not Available [facility] 3 00:14:21 Hyperlipidemi a 18491304 Active 2021 Not Available [facility] 3 00:14:21 Hyperglycemia 42664800 Active 2021 Not Available [facility] 3 00:14:21 Notes:02-15-18 pt refuses, PA P, mammogram, bone density and colonoscopy Some problems listed in Document: #[id number] could not be added to this patient's chart. Please review this document and add these problems to the patient's chart manually as needed. Problem Notes None recorded. Procedures Surgical History Date Name Laterality Status Provider Name and Address Organization Details Recorded Time 03/07/20 24 Medicare Wellness CPT Code, subsequent completed Chaim Lugo LPN [facility] [employer] [facility] 03/07/2024 10:12:22 03/07/20 24 Advanced Care Planning completed Chaim Lugo LPN [facility] [employer] [place] [facility] 03/07/2024 10:30:32 06/11/20 23 Cardiac Cath completed MAGDIEL Louis [facility] 06/22/2023 11:04:07 06/11/20 23 Cardiac Stent Placement completed MAGDIEL Louis [facility] [employer] [facility] 06/22/2023 11:04:00 10/01/20 09 Date of Last Colonoscopy completed Not Available [facility] 12/30/2022 03:17:42 Cataract Surgery completed Not Available [facility] 12/30/2022 03:17:45 Pacemaker monitr audible/vis completed Not Available [facility] 12/30/2022 03:17:45 Imaging Results None recorded. Procedure Notes None recorded. Medical Equipment None Reported. Allergies Allergen ID Allergen Name Allergen Category Reaction Reaction Severity Criticality Documentation Date Start Date Code Code System Note Provider Name and Address Organization Details Recorded Time 6382 Product containin g penicilli n (product) medicatio n Not available Not available Not available 12/30/2022 [id number] SNOMED Not Available [facility] 3 03:36:19 Medications Name Sig Start Date Stop Date Status Note LastModified by Organization Details LastModified Time metformin 500 mg tablet TAKE 1 TABLET BY MOUTH TWICE A DAY 06/22 completed patient not taking Not Available Not Available Not Available atorvasta tin 80 mg tablet TAKE 1 TABLET BY MOUTH EVERYDAY AT BEDTIME active Not Available Not Available No t Available acetamino phen 325 mg tablet Take 2 tablets every 6 hours by oral route as needed. active Not Available Not Available No t Available clindamyc in HCl 300 mg capsule TAKE 1 CAPSULE BY MOUTH EVERY 6 HOURS UNTIL GONE 10/12 completed Not Available Not Available Not Available cetirizin e 10 mg tablet TAKE 1 TABLET BY MOUTH EVERY DAY 2023 active Not Available Not Available Not Avai lable azithromy regine 250 mg tablet TAKE 2 TABLETS BY MOUTH TODAY, THEN TAKE 1 TABLET DAILY FOR 4 DAYS DIRECTED 10/12 completed Not Available Not Available Not Available prednison e 20 mg tablet TAKE 2 TABLETS BY MOUTH EVERY DAY FOR 5 DAYS 10/12 completed Not Available Not Available Not Available clopidogr el 75 mg tablet TAKE 1 TABLET BY MOUTH EVERY DAY active Not Available Not Available No t Available sulfameth oxazole 800 mg-trimet hoprim 160 mg tablet TAKE 1 TABLET BY MOUTH TWICE A DAY FOR 10 DAYS 03/30 completed Not Available Not Available Not Available tramadol 50 mg tablet TAKE 1 OR 2 TABLETS BY MOUTH EVERY 4 TO 6 HOURS NEEDED PAIN active Not Available Not Available No t Available carvedilo l 3.125 mg tablet TAKE 1 TABLET BY MOUTH TWICE A DAY active Not Available Not Available No t Available benzonata te 100 mg capsule TAKE 1 CAPSULE BY MOUTH 3 TIME A DAY NEEDED FOR COUGH 03/30 completed Not Available Not Available Not Available prednison e 50 mg tablet TAKE 1 TABLET BY MOUTH DAILY 03/30 completed Not Available Not Available Not Available losartan 25 mg tablet TAKE 1 TABLET BY MOUTH EVERY DAY active Not Available Not Available No t Available aspirin 81 mg chewable tablet TAKE 1 TABLET BY MOUTH EVERY DAY active Not Available Not Available No t Available lisinopri l 5 mg tablet Take 1 tablet every day by oral route. active Not Available Not Available No t Available ergocalci ferol (vitamin D2) 1,250 mcg (50,000 unit) capsule TAKE 1 CAPSULE BY MOUTH ONE TIME PER WEEK 10/12 completed Not Available Not Available Not Available Cheratuss in AC 10 mg-100 mg/5 mL oral liquid 10/14 completed Not Available Not Available Not Available methylpre dnisolone 4 mg tablets in a dose pack use as directed 02/17 completed Not Available Not Available Not Available albuterol sulfate HFA 90 mcg/actua tion aerosol inhaler INHALE 2 PUFFS BY MOUTH EVERY 4 HOURS NEEDED active Not Available Not Available No t Available fluticaso ne propionat e 50 mcg/actua tion nasal spray,anna pension SPRAY 1 SPRAY BY INTRANAS AL ROUTE EVERY DAY 2023 active Not Available Not Available Not Avai lable doxycycli ne hyclate 100 mg tablet TAKE 1 TABLET BY MOUTH TWICE A DAY FOR 10 DAYS 03/30 completed Not Available Not Available Not Available loratadin e 10 mg tablet TAKE 1 TABLET BY MOUTH EVERY DAY NEEDED 08/15 completed Not Available Not Available Not Available rosuvasta tin 10 mg tablet TAKE 1 TABLET BY MOUTH EVERY DAY 06/22 completed stopped in hospital Not Available Not Available Not Available rosuvasta tin 20 mg tablet Take 1 tablet every day by oral route. 10/03 completed Not Available Not Available Not Available rosuvasta tin 40 mg tablet Take 1 tablet every day by oral route. active Not Available Not Available No t Available vitamin E 1 TAB PO QD 2016 active Not Available Not Available Not Avai lable folic acid 1 TAB PO QD 2017 active Not Available Not Available Not Avai lable Vitamin D3 active Not Available Not Available Not Available ipratropi um 0.5 mg-albute rol 2.5 mg/2.5 mL solution for nebulizat ion inhale one vial by mouth 4times a day as needed active Not Available Not Available No t Available Fluzone High-Dose 2019-20 (PF) 180 mcg/0.5 mL intramusc ular syringe TO BE ADMINIST ERED BY PHARMACI ST FOR IMMUNIZA TION 05/14 completed Not Available Not Available Not Available Breztri Aerospher e 160 mcg-9mcg- 4.8mcg/ac tuation HFA aerosol inhaler Inhale 2 puffs twice a day by inhalati on route. active Not Available Not Available No t Available Paxlovid 300 mg (150 mg x 2)-100 mg tablets in a dose pack USE DIRECTED 03/07 completed Not Available Not Available Not Available Vitals Date Recorded Body height Body mass index (BMI) Body weight Body temperature Heart rate Systolic blood pressure Diastolic blood pressure Provider Name and Address Organization Details Last Updated DateTime 3 167.64 cm 29.1 kg/m2 63236.6 3 g 97.2 [degF] 72 /min 120 mm[Hg] 70 mm[Hg] MAGDIEL Louis [place] [facility] [facility] [employer] [facility] 3 10:02:36 Date Recorded Body height Body mass index (BMI) Body weight Body temperature Heart rate Systolic blood pressure Diastolic blood pressure Provider Name and Address Organization Details Last Updated DateTime 4 167.64 cm 29.9 kg/m2 81987.5 9 g 97.3 [degF] 60 /min 120 mm[Hg] 72 mm[Hg] MAGDIEL Louis [place] [employer] [facility] [employer] [facility] 4 09:36:48 Date Recorded Pain severity - 0-10 verbal numeric rating [Score] - Reported Provider Name and Address Organization Details Last Updated DateTime 03/07/2024 0 Chaim Lugo LPN [facility] [employer] 03/07/2024 10:12:39 Date Recorded Body height Body mass index (BMI) Body weight Body temperature Heart rate Oxygen saturation Oxygen saturation in Arterial blood by Pulse oximetry Systolic blood pressure Diastolic blood pressure Provider Name and Address Organization Details Last Updated DateTime 4 167.64 cm 29.4 kg/m2 02699.8 1 g 98.2 [degF] 72 /min 95 % 95 % 110 mm[Hg] 58 mm[Hg] Mirna Walker MA [facility] [employer] [facility] 4 16:20:38 Date Recorded Body height Body mass index (BMI) Body weight Body temperature Heart rate Oxygen saturation Oxygen saturation in Arterial blood by Pulse oximetry Pain severity - 0-10 verbal numeric rating [Score] - Reported Systolic blood pressure Diastolic blood pressure Provider Name and Address Organization Details Last Updated DateTime 4 167.64 cm 29.2 kg/m2 53622.2 2 g 96 [degF] 70 /min 96 % 96 % 0 160 mm[Hg] 70 mm[Hg] Mirna Walker MA [facility] [place] [facility] 4 09:43:19 Date Recorded Body height Body mass index (BMI) Body weight Body temperature Heart rate Oxygen saturation Oxygen saturation in Arterial blood by Pulse oximetry Pain severity - 0-10 verbal numeric rating [Score] - Reported Provider Name and Address Organization Details Last Updated DateTime 4 167.64 cm 28.1 kg/m2 66664.0 7 g 97.8 [degF] 64 /min 98 % 98 % 0 Mirna Walker [place] [employer] [facility] [place] [facility] 4 10:33:21 Date Recorded Systolic blood pressure Diastolic blood pressure Provider Name and Address Organization Details Last Updated DateTime 10/12/2024 136 mm[Hg] 68 mm[Hg] Chaim Lugo LPN [facility] [employer] [facility] 10/12/2024 10:51:21 Social History Question Answer Notes LastModified by Organization Details LastModified Time Tobacco Smoking Status Current Every Day Smoker Not Available [facility] 12/30/2022 03:09:27 Do You Have An Advance Directive? No Information Given Today [email or web address] Information not available 03/07/2024 What Is Your Level Of Alcohol Consumption? Occasional [id number] Information not available 12/30/2022 Are You Blind Or Do You Have Difficulty Seeing? No [id number] Information not available 12/30/2022 What Is Your Level Of Caffeine Consumption? Heavy [id number] [id number] Information not available 12/30/2022 How Much Tobacco Do You Chew? None [id number] Information not available 12/30/2022 What Is Your Code Status? Full Code Information not available 03/07/2024 In The 14 Days Before Symptom Onset, Have You Had Close Contact With A Laboratory-conf irmed COVID-19 While That Case Was Ill? No [id number] Information not available 12/30/2022 In The 14 Days Before Symptom Onset, Have You Had Close Contact With A Person Who Is Under Investigation For COVID-19 While That Person Was Ill? No [id number] Information not available 12/30/2022 Are You Currently Employed? No [email or web address] Information not available 03/07/2024 Are You Deaf Or Do You Have Serious Difficulty Hearing? Yes [id number] Information not available 12/30/2022 What Type Of Diet Are You Following? REGULAR [id number] Information not available 12/30/2022 Which Illicit Or Recreational Drugs Have You Used? None MIGRATION.629 [id number] Information not available 12/30/2022 Do You Or Have You Ever Used E-cigarettes Or Vape? Never Used Electronic Cigarettes MIGRATION.675 [id number] Information not available 12/30/2022 What Is The Highest Grade Or Level Of School You Have Completed Or The Highest Degree You Have Received? [id number] MIGRATION.218 [id number] Information not available 12/30/2022 What Is Your Occupation? Retired MIGRATION.886 [id number] Information not available 12/30/2022 Have There Been Any Changes To Your Family Or Social Situation? No MIGRATION.761 [id number] Information not available 12/30/2022 What Is The Fluoride Status Of Your Home? Unknown MIGRATION.509 7131513 Information not available 12/30/2022 Are There Any Guns Present In Your Home? No MIGRATION.453 [id number] Information not available 12/30/2022 Do You Use Insect Repellent Routinely? No MIGRATION.242 [id number] Information not available 12/30/2022 Where Do You Live? Single[place]House MIGRATION.309 [id number] Information not available 12/30/2022 Presence Of Domestic Violence No [email or web address] Information not available 03/07/2024 Guns Present In The Home? No [email or web address] Information not available 03/07/2024 Are You Able To Care For Yourself? Yes [email or web address] Information not available 03/07/2024 Are You Blind Or Do Yo Have Difficulty Seeing? No [email or web address] Information not available 03/07/2024 Are You Deaf Or Do You Have Serious Difficulty Hearing? Yes Does Not Have Hearing Aids [email or web address] Information not available 03/07/2024 General Stress Level? Moderate [email or web address] Information not available 03/07/2024 Live Alone Of With Others? With Others [email or web address] Information not available 03/07/2024 Do You Have A Medical Power Of Steam Cleaner? No MIGRATION.494 [id number] Information not available 12/30/2022 What Was The Date Of Your Most Recent Tobacco Screening? 10/12/2024 Information not available 10/12/2024 How Many Children Do You Have? 2 Information not available 03/22/2024 What Is Your Current Pack Years? [email or web address] Information not available 03/07/2024 Have You Ever Been Counseled For Unhealthy Alcohol Use? No [email or web address] Information not available 03/07/2024 Do You Have Any Pets? Yes MIGRATION.361 [id number] Information not available 12/30/2022 What Is Your Relationship Status? MIGRATION.138 [id number] Information not available 12/30/2022 Do You Use Your Seat Belt Or Car Seat Routinely? Yes MIGRATION.241 [id number] Information not available 12/30/2022 Do You Have Smoke And Carbon Monoxide Detectors In Your Home? Yes MIGRATION.758 0669620 Information not available 12/30/2022 At What Age Did You Start Smoking Tobacco? 40 MIGRATION.069 6676715 Information not available 12/30/2022 Are You Passively Exposed To Smoke? Yes MIGRATION.352 2990061 Information not available 12/30/2022 Do You Or Have You Ever Used Smokeless Tobacco? Never Used Smokeless Tobacco MIGRATION.082 [id number] Information not available 12/30/2022 Are There Any Smokers In Your House? Yes MIGRATION.734 [id number] Information not available 12/30/2022 How Much Tobacco Do You Smoke? 1 PPD [email or web address] Information not available 10/19/2023 Do You Feel Stressed (tense, Restless, Nervous, Or Anxious, Or Unable To Sleep At Night)? [id number] MIGRATION.461 [id number] Information not available 12/30/2022 Do You Use Any Illicit Or Recreational Drugs? No MIGRATION.129 9313618 Information not available 12/30/2022 Do You Use Sunscreen Routinely? Yes MIGRATION.873 2949537 Information not available 12/30/2022 Has Tobacco Cessation Counseling Been Provided? Yes [email or web address] Information not available 03/07/2024 On What Date Was Tobacco Cessation Counseling Provided? 03/07/2024 [email or web address] Information not available 03/07/2024 How Many Years Have You Smoked Tobacco? 35 MIGRATION.692 1889450 Information not available 12/30/2022 Have You Recently Traveled Abroad? No MIGRATION.846 1808540 Information not available 12/30/2022 Do You Have Any Dietary Restrictions? No MIGRATION.498 2780667 Information not available 12/30/2022 Do You Or Have You Ever Used Any Other Forms Of Tobacco Or Nicotine? No MIGRATION.857 4330293 Information not available 12/30/2022 How Many Days In The Past Year Have You Consumed 4 Or More Drinks? 0 Information not available 03/07/2024 Sex: Female Functional Status Question Answer Note LastModified by Organizat ion Details LastModified Time Do you have difficulty walking or climbing stairs? No MIGRATION.[id number] [id number] Information not available 12/30/2022 Do you have transportation difficulties? No MIGRATION.[id number] 026 Information not available 12/30/2022 Are you able to walk? YESWOREST [email or web address] Information not available 03/07/2024 Do you have difficulty doing errands alone? No MIGRATION.[id number] 026 Information not available 12/30/2022 Are you able to care for yourself? Yes MIGRATION.[id number] 026 Information not available 12/30/2022 Do you have difficulty dressing or bathing? No MIGRATION.9350874 026 Information not available 12/30/2022 What is your exercise level? Occasional MIGRATION.[id number] 026 Information not available 12/30/2022 Mental Status Question Answer Note LastModified by Organizat ion Details LastModified Time Do you have difficulty concentrating, remembering or making decisions? No MIGRATION.[id number] 6 Information not available 12/30/2022 Family History Relationship Description Onset Age of this Age Resolved Age Notes LastModified by Organization Details LastModified Time Mother Diabetes mellitus MIGRATION.085 [id number] Not available 12/30/2022 03:17:49 Medical History Condition Response NERVE DISEASE N BLINDNESS N RHEUMATIC FEVER N KIDNEY STONES N BLADDER PROBLEMS N MRSA N OTHER # 1 N POLIO N LUNG DISEASE/DISORDER N RADIATION / CHEMOTHERAPY N COPD Y Other # 2 N BLOOD DISEASES N SURGERY N EAR OR HEARING PROBLEMS N MUMPS N DEPRESSION (INCLUDING POST ) N BOWEL PROBLEMS N STROKE/TIA N ULCERS N BENIGN PROSTATIC HYPERPLASIA N MEASLES N MYOCARDIAL INFARCTION Y OBESITY N GERD/NAUSEA N ANEURYSM N URINARY/BLADDER/KIDNEY PROBLEMS N CORONARY ARTERY DISEASE (CAD) N ADDICTION CONCERNS N Impotence N ENDOMETRIOSIS N USE OF BLOOD THINNERS Y SKIN PROBLEMS N GASTROINTESTINAL DISORDER N PERIPHERAL VASCULAR DISEASE N MUSCLE,JOINT OR BONE PROBLEMS N GASTROINTESTINAL BLEEDING N BLOOD CLOTS N ASTHMA N CATARACTS N ERECTILE DYSFUNCTION N VARICOSITIES N GI PROBLEMS N Low Testosterone N INFERTILITY N AIDS/HIV N CHEMOTHERAPY / RADIATION N LIVER DISEASE N MALE HYPOGONADISM N HYPERTENSION Y Deficiency Y ANXIETY DISORDER N BLOOD TRANSFUSION N ANEMIA/BLOOD DISORDER N CHRONIC EAR INFECTIONS N BRONCHITIS N TUBERCULOSIS N GLAUCOMA N FOOT PROBLEM N DIVERTICULITIS N SLEEP APNEA N CHICKENPOX N INFECTIOUS DISEASE N PROSTATE N HEART ARRHYTHMIA N INSOMNIA N HIGH CHOLESTEROL / HYPERLIPIDEMIA Y EYE PROBLEMS N HYPERTHYROIDISM N NEUROLOGICAL PROBLEMS N EDEMA N CHRONIC PAIN SYNDROME N HYPOTHYROIDISM N CAROTID BLOCKAGE N CONSTIPATION N BACK / NECK PROBLEMS N HAVE YOU BEEN HOSPITALIZED OR SEEN IN [place] [facility] IN THE PAST YEAR ? N ATHEROSCLEROSIS N BREAST PROBLEMS N DIALYSIS N ECZEMA N OSTEOPOROSIS N ARTHRITIS N APPENDICITIS N DIABETES, TYPE N BAD TEETH N ENT Y HEARTBURN / REFLUX N AUTISM SPECTRUM DISORDER (ASD) N HEPATITIS / LIVER DISEASE N GOUT N SLEEP DISORDER N ALZHEIMER'S DISEASE N Brain Problems N DEMENTIA N HERPES N SEIZURES/EPILEPSY N HEADACHES/MIGRAINES N VASCULAR DISEASE N PACEMAKER Y Blood Disorder N DIZZINESS N HEART DISEASE/HEART PROBLEMS N KIDNEY DISEASE N MULTIPLE SCLEROSIS N CANCER: SPECIFY N CARDIAC ARRHYTHMIA Y ATRIAL FIBRILLATION N Gall Stones N PULMONARY EMBOLISM N AUTOIMMUNE DISEASE N Gynecological History Statement/Question Response How many live births 4 Abnormal Pap N Date of Last Mammogram Date of Last Mammogram Date of Last Colonoscopy 10/01/2009 Most Recent Bone Density Date of LMP Sexually Active? N Menses Monthly N Date of Last Pap Current Control Method Menopause Obstetrics History GPAL:G 4 P 4 0 0 3 Type Value Multiple Births 0 Full Term 4 Induced 0 Spontaneous 0 Premature 0 Living 3 Ectopics 0 Total 4 Immunizations Vaccine Type Date Status Note Provider Nam e and Address Organization Details Recorded Time COVID-19, mRNA, LNP-S, PF, 30 mcg/0.3 mL dose 1 completed Not Available [facility] 07/29/2023 00:14:21 COVID-19, mRNA, LNP-S, PF, 30 mcg/0.3 mL dose 1 completed Not Available [facility] 07/29/2023 00:14:21 Influenza, split virus, quadrivalent, PF 2 completed Not Available [facility] 07/29/2023 00:14:21 COVID-19, mRNA, LNP-S, PF, 30 mcg/0.3 mL dose 1 completed Not Available [facility] 07/29/2023 00:14:21 Influenza, high-dose, trivalent, PF 9 completed Not Available [facility] 07/29/2023 00:14:21 influenza, unspecified formulation 7 completed Not Available [facility] 07/29/2023 00:14:21 tetanus toxoid, unspecified formulation 1 completed Not Available [facility] 07/29/2023 00:14:21 Influenza, high-dose, quadrivalent, PF 1 completed Not Available [facility] 07/29/2023 00:14:21 pneumococcal polysaccharide PPV23 9 completed Not Available [facility] 07/29/2023 00:14:21 Influenza, high-dose, trivalent, PF 8 completed Not Available [facility] 07/29/2023 00:14:21 Pneumococcal conjugate PCV 13 8 completed Not Available [facility] 07/29/2023 00:14:21 Influenza, high-dose, quadrivalent, PF 3 completed Shauna Hernandez RMKeith blackman, [facility] 08/31/2023 09:57:14 Influenza, high-dose, trivalent, PF 4 completed Shauna Hernandez RMA hiral, [place] [facility] 10/17/2024 12:47:15 Past Encounters Encounter ID Performer Location Encounter Start Date Encounter Closed Date Diagnosis/Indication Diagnosis SNOMED-CT Code Diagnosis ICD10 Code Diagnosis Note [id number] [facility] [address] [facility] 15 [place] [address] 02/06/2021 00:00:00 02/06/2021 10:15:35 [id number] [facility] [address] [address] 09/16/2021 00:00:00 09/16/2021 11:04:19 [id number] [facility] [address] [address] 02/17/2022 00:00:00 02/17/2022 10:15:11 [id number] [facility] Internal Med [facility] [address] [facility] 15 [place] [address] 07/07/2022 00:00:00 07/07/2022 10:39:14 [id number] Ameena yee MD [facility] Internal Med [facility] [address] [facility] 15 [place] [address] 03/30/2023 13:46:10 03/30/2023 14:14:18 Screening - NAD [id number] Z13.9 C-scope: Does not want any c-scopes understand s the risks, denies any complaints , also declines any cologuard Mammogram/ PAP: Declines, no complaints DEXA: Declines UTD flu shot 09/16/2021 UTD on Td 10/01/11UT D pneumovax #13 02/15/18, #23 04/18/19Al so get the shingles vaccineUTD on COVID 19 vaccine RTC in 4 monthsdo labsER if worseshe did verbalize her understand ing of the above Essential hypertension 08974032 I10 Prior hx of syncope with pacemakerE CHO 03/04/2023 Dr Fry 01/13/2022 , next f/u in one year Type 2 eileen betes mellitus without complication 323106565 E11.9 On metformin 500mg po bidDiet and exercise Chronic ob structive pulmonary disease 22062981 J44.9 On albuterolF eels well See case 01/20/2023 CT chest 01/27/2023 : PneumoniaS hould see pulmonary Vitamin D deficiency 347 95594 E55.9 Get labs Smoker 32939926 F17.200 Declines any referrals or LDCT at this time No complaints Does not want any interventi ons Hyperlipidemia 33248616 E78.5 Not taking rosuvastat in 40mg daily, but states that she wants to try the lower dose, will start on 10mg daily 03/30/2023 May need to be on vascepa Get labs [id number] Ameena yee MD [facility] Internal Med [facility] [address], [place] [address] [place] [address] 06/22/2023 10:42:40 06/22/2023 11:40:30 Screening - NAD [id number] Z13.9 C-scope: Does not want any c-scopes understand s the risks, denies any complaints , also declines any cologuard Mammogram/ PAP: Declines, no complaints DEXA: Declines UTD flu shot 09/16/2021 UTD on Td 10/01/11UT D pneumovax #13 02/15/18, #23 04/18/19Al so get the shingles vaccineUTD on COVID 19 vaccine RTC in 4 monthsdo labsER if worseshe did verbalize her understand ing of the above Essential hypertension 46080760 I10 Prior hx of syncope with pacemakerE CHO 03/04/2023 Dr Fry 01/13/2022 , next f/u in one yearDr Cedric 02/18/2023 , f/u in one year Chest pain, seen in the ER [facility] 06/10/2023 , s/p CT angio 06/10/2023 , XR Chest 06/10/2023 Type 2 eileen betes mellitus without complication 139460755 E11.9 On metformin 500mg po bidDiet and exercise Chronic ob structive pulmonary disease 65271648 J44.9 On albuterolF eels well See case 01/20/2023 CT chest 01/27/2023 : PneumoniaS hould see pulmonary Vitamin D deficiency 347 22586 E55.9 Get labs Smoker 95159729 F17.200 Declines any referrals or LDCT at this time No complaints Does not want any interventi ons Hyperlipidemia 82997162 E78.5 Not taking rosuvastat in 40mg daily, but states that she wants to try the lower dose, will start on 10mg daily 03/30/2023 May need to be on vascepa OV 06/22/2023 :On atorvastat in 80mg dailyGet labs Coronary arteriosclerosis 29182384 I25.10 S/p stent done by Dr Josue On ASAOn coreg 3.125mg dailyOn plavixOn losartan 25mg dailyNow has an apt with Dr Josue on 06/29/2023 , get a referral to Dr Fry also, will see Dr Velasquez [facility] next week [id number] Ameena yee MD [facility] [address] [facility], [place] [address] [place] [address] 07/27/2023 10:10:36 02/17/2024 10:04:21 Screening - NAD [id number] Z13.9 C-scope: Does not want any c-scopes understand s the risks, denies any complaints , also declines any cologuard Mammogram/ PAP: Declines, no complaints DEXA: Declines UTD flu shot 09/16/2021 UTD on Td 10/01/11UT D pneumovax #13 02/15/18, #23 04/18/19Al so get the shingles vaccineUTD on COVID 19 vaccine RTC in 4 monthsdo labsER if worseshe did verbalize her understand ing of the above Essential hypertension 44075965 I10 Prior hx of syncope with pacemakerE CHO 03/04/2023 Dr Fry 01/13/2022 , next f/u in one yearDr Cedric 02/18/2023 , f/u in one year Chest pain, seen in the ER [facility] 06/10/2023 , s/p CT angio 06/10/2023 , XR Chest 06/10/2023 Type 2 eileen betes mellitus without complication 719256598 E11.9 On metformin 500mg po bidDiet and exercise Chronic ob structive pulmonary disease 73630472 J44.9 On albuterolF eels well See case 01/20/2023 CT chest 01/27/2023 : PneumoniaS hould see pulmonary Vitamin D deficiency 347 18362 E55.9 Get labs Smoker 08969678 F17.200 Declines any referrals or LDCT at this time No complaints Does not want any interventi ons Hyperlipidemia 81433633 E78.5 Not taking rosuvastat in 40mg daily, but states that she wants to try the lower dose, will start on 10mg daily 03/30/2023 May need to be on vascepa OV 06/22/2023 :On atorvastat in 80mg dailyGet labs Coronary arteriosclerosis 97411520 I25.10 S/p stent done by Dr Josue On ASAOn coreg 3.125mg dailyOn plavixOn losartan 25mg dailyNow has an apt with Dr Josue on 06/29/2023 , get a referral to Dr Fry also, will see Dr Velasquez [facility] next week [id number] Ameena yee MD [facility] [address] [facility], [place] [address] [place] [address] 10/19/2023 09:48:06 10/19/2023 10:23:30 Screening - NAD 351534589 Z13.9 C-scope: Does not want any c-scopes understand s the risks, denies any complaints , also declines any cologuard Mammogram/ PAP: Declines, no complaints DEXA: Declines UTD flu shot 09/16/2021 UTD on Td 10/01/11UT D pneumovax #13 02/15/18, #23 04/18/19Al so get the shingles vaccineUTD on COVID 19 vaccineGet RSV vaccine RTC in 4 monthsdo labsER if worseShe did verbalize her understand ing of the above Essential hypertension 72447751 I10 Prior hx of syncope with pacemakerE CHO 03/04/2023 Dr Fry 01/13/2022 , next f/u in one yearDr Cedric 02/18/2023 , f/u in one year Chest pain, seen in the ER [facility] 06/10/2023 , s/p CT angio 06/10/2023 , XR Chest 06/10/2023 Type 2 eileen betes mellitus without complication 198990391 E11.9 Not on metformin 500mg po bidDiet and exercise Chronic ob structive pulmonary disease 40844593 J44.9 On albuterolF eels well See case 01/20/2023 CT chest 01/27/2023 : PneumoniaS hould see pulmonary Vitamin D deficiency 347 47589 E55.9 Get labs Smoker 07963320 F17.200 Declines any referrals or LDCT at this time No complaints Does not want any interventi ons Hyperlipidemia 84296456 E78.5 On ASAOn atorvastat in 80mg dailyGet labs Coronary arteriosclerosis 29808737 I25.10 S/p stent done by Dr Josue On ASAOn coreg 3.125mg dailyOn plavixOn losartan 25mg dailyNow has an apt with Dr Josue on 06/29/2023 , get a referral to Dr Fry also, will see Dr Velasquez [facility] next week [id number] Ameena yee MD [facility] Internal Med [facility] [address] [facility], [place] [address] [place] [address] 03/07/2024 09:26:00 03/07/2024 10:03:32 Screening - NAD 056779836 Z13.9 C-scope: Does not want any c-scopes understand s the risks, denies any complaints , also declines any cologuard Mammogram/ PAP: Declines, no complaints DEXA: Declines UTD flu shot 09/16/2021 UTD on Td 10/01/11UT D pneumovax #13 02/15/18, #23 04/18/19Al so get the shingles vaccineUTD on COVID 19 vaccineGet RSV vaccine RTC in 4 monthsdo labsER if worseShe did verbalize her understand ing of the above Essential hypertension 38139822 I10 Prior hx of syncope with pacemakerE CHO 03/04/2023 Dr Fry 01/13/2022 , next f/u in one yearDr Cedric 02/18/2023 , f/u in one year Chest pain, seen in the ER [facility] 06/10/2023 , s/p CT angio 06/10/2023 , XR Chest 06/10/2023 Type 2 eileen betes mellitus without complication 012097974 E11.9 Not on metformin 500mg po bid, declined 03/07/2024 Get labsDiet and exercise Chronic ob structive pulmonary disease 12405767 J44.9 On albuterolH as used Arpita in the past, will prescribe this See case 01/20/2023 CT chest 01/27/2023 : PneumoniaS hould see pulmonary Vitamin D deficiency 347 83108 E55.9 Get labs Smoker 73200105 F17.200 Declines any referrals or LDCT at this time No complaints Does not want any interventi ons Hyperlipidemia 00278855 E78.5 On ASAOn atorvastat in 80mg dailyGet labs Coronary arteriosclerosis 52168692 I25.10 S/p stent done by Dr Josue On ASAOn coreg 3.125mg dailyOn plavixOn losartan 25mg daily Dr Fry 01/25/2024 next in one year Adult heal th examination 464724406 Z00.00 Screening for disorder 490369053 Z13.9 [id number] Ameena yee MD [facility] [address] [place] [address] 03/22/2024 15:37:43 03/22/2024 16:58:59 Upper respiratory infection 31959164 J06.9 States that she did do a home COVVID 19 test and it was negative, does not want to do any more testingGet on z-pack, flonase and zyrtecShe will use her albuterol inhalerIso late, hydrate and ER if Anais is very appreciati ve to this plan of care [id number] Ameena yee MD [facility] Internal Med [facility] [address] [facility], [facility] [address] [place] [address] 07/06/2024 09:27:48 07/06/2024 10:30:22 Screening - NAD 128310127 Z13.9 C-scope: Does not want any c-scopes understand s the risks, denies any complaints , also declines any cologuard Mammogram/ PAP: Declines, no complaints DEXA: Declines UTD flu shot 09/16/2021 UTD on Td 10/01/11UT D pneumovax #13 18, #23 04/18/19Al so get the shingles vaccineUTD on COVID 19 vaccineGet RSV vaccine RTC in 4 monthsdo labsER if worseClarice did verbalize her understand ing of the above Essential hypertension 78205584 I10 On ASAOn coreg 3.125mg bidOn plavixOn losartan 25mg daily Prior hx of syncope with pacemakerE CHO 03/04/2023 Dr Fry 01/13/2022 , next f/u in one yearDr Fry 02/18/2023 , f/u in one year Chest pain, seen in the ER [facility] 06/10/2023 , s/p CT angio 06/10/2023 , XR Chest 06/10/2023 Type 2 eileen betes mellitus without complication 559297827 E11.9 Not on metformin 500mg po bid, declined 03/07/2024 , 07/06/2024 Get labsDiet and exercise Chronic ob structive pulmonary disease 40870061 J44.9 On albuterolO n Julianotri See case 01/20/2023 CT chest 01/27/2023 : PneumoniaS hould see pulmonary Vitamin D deficiency 347 81394 E55.9 Get labs Smoker 58618570 F17.200 Declines any referrals or LDCT at this time No complaints Does not want any interventi ons Hyperlipidemia 91192018 E78.5 On ASAOn atorvastat in 80mg daily, self stopped as it was making her feel 'hot', she has now restarted her prescripto n of rosuvastat in 40mg daily, added to her med list 07/06/2024 Get labs Coronary arteriosclerosis 29797706 I25.10 S/p stent done by Dr Josue On ASAOn coreg 3.125mg dailyOn plavixOn losartan 25mg daily Dr Fry 01/25/2024 next in one year [id number] Ameena yee MD [facility] [address] [facility], [place] [address] [place] [address] 10/12/2024 10:27:24 10/12/2024 11:17:14 Screening - NAD 229734682 Z13.9 C-scope: Does not want any c-scopes understand s the risks, denies any complaints , also declines any cologuard Mammogram/ PAP: Declines, no complaints DEXA: Declines UTD flu shot 09/16/2021 UTD on Td 10/01/11UT D pneumovax #13 02/15/18, #23 04/18/19Al so get the shingles vaccineUTD on COVID 19 vaccineGet RSV vaccine RTC in 4 monthsdo labsER if worseShe did verbalize her understand ing of the above Essential hypertension 27586016 I10 On ASAOn coreg 3.125mg bidOn plavixOn losartan 25mg daily Prior hx of syncope with pacemakerE CHO 03/04/2023 Dr Fry 01/13/2022 , next f/u in one yearDr Cedric 02/18/2023 , f/u in one yearDr Cedric 01/25/2024 , f/u in one year Chest pain, seen in the ER [facility] 06/10/2023 , s/p CT angio 06/10/2023 , XR Chest 06/10/2023 Type 2 eileen betes mellitus without complication 081559419 E11.9 Not on metformin 500mg po bid, declined 03/07/2024 , 07/06/2024 Get labsDiet and exercise Chronic ob structive pulmonary disease 96284791 J44.9 On albuterolO n Fiorellaztri See case 01/20/2023 CT chest 01/27/2023 : PneumoniaS hould see pulmonary Vitamin D deficiency 347 59557 E55.9 Get labs Smoker 22288161 F17.200 Declines any referrals or LDCT at this time No complaints Does not want any interventi ons Hyperlipidemia 49535036 E78.5 On ASAOff atorvastat in 80mg dailyOn rosuvastat in 40mg dailyGet labs Coronary arteriosclerosis 26520457 I25.10 S/p stent done by Dr Josue On ASAOn coreg 3.125mg dailyOn plavixOn losartan 25mg daily Dr Fry 01/25/2024 next in one year Health Concerns Section Related Observation LastModified by Organization Detai ls LastModified Time None Recorded Concern Status LastModified by Organization Details LastModified Time None Recorded Advance Directives Directive N: Information given today Payers Encounter Date Sequence Insurance Name Policy Number Policy Arrieta Covered Member ID Arrieta Member ID Guarantor Name 10/19/2023 1 [facility] (MEDICARE REPLACEMENT/A DVANTAGE - HMO) [id number] [employer] [id number] [employer] 03/07/2024 1 [facility] (MEDICARE REPLACEMENT/A DVANTAGE - HMO) [id number] [employer] [id number] [employer] 03/22/2024 1 [facility] (MEDICARE REPLACEMENT/A DVANTAGE - HMO) [id number] [employer] [id number] [employer] 07/06/2024 1 [facility] (MEDICARE REPLACEMENT/A DVANTAGE - HMO) [id number] [employer] [id number] [employer] 10/12/2024 1 [facility] (MEDICARE REPLACEMENT/A DVANTAGE - HMO) [id number] [employer] [id number] [employer] Notes Date Note Type Note Provider Name and Address Organization Details Recorded Time 10/19/2023 text/html Here to oscar Corbett PMD:Dr. Emeterio Gandhi, [facility]ly [facility] Hx:SmokerHTNHLDRev iewed social family and surgical historyHere to get labs, doing well otherwise OV 11/11/17:Here for her routine apt, doing well, she did do the labsIs doing well at this time OV 02/15/18:Here for her routine apt and MMVShe states that she is doing well at this timeNo recent labs done OV 08/16/18:Here for her routine 6 months aptShe states that he is doing well at this timeShe has not done any labs OV 12/20/18:Here for her routine aptFeels that she is doing well, did do the labsHas URI sx since 2 weeks, +ve cough, no blood, no wheezing, no fevers or chillsNo N/V or diarrheaOV 04/18/19:Here for her routine aptShe did do the labsShe feels wellROS is negativeOV 08/15/19:Here for her routine aptShe did do the labsShe feels well at this timeShe continues to smoke OV 05/14/2020:Here for her routine aptNo new labsShe states that she is doing very well nowOV 10/03/2020:Here for her routine aptShe is doing well at this timeShe did do the labs and is here to review theseOV 02/06/2021:Here for her routine aptShe is doing very wellShe did do the labsOV 09/16/2021:Here for her routine aptShe is well and has done her labsOV 02/17/2022:Here for her routine f/uShe is doing wellShe did do the labs on 2OV 07/07/2022:Here for her f/u apt, she is doing well, she did do the labs on 07/03/2022 03/30/2023: Here for her f/u visit, does well at this time OV 06/22/2023: Here for her post hosp f/u visit, [place] was admitted and [place], s/p stent, sent from [facility], now does well, no new labs OV 07/27/2023: Here for her f/u apt, she feels well today Ameena Jackson MD [address], [address], [place], [address], [place] [facility] 10/19/2023 10:36:27 03/07/2024 text/html Here to oscar Corbett PMD:Dr. Emeterio Gandhi, [facility] Hx:SmokerHTNHLDRev iewed social family and surgical historyHere to get labs, doing well otherwise OV 11/11/17:Here for her routine apt, doing well, she did do the labsIs doing well at this time OV 02/15/18:Here for her routine apt and MMVShe states that she is doing well at this timeNo recent labs done OV 08/16/18:Here for her routine 6 months aptShe states that he is doing well at this timeShe has not done any labs OV 12/20/18:Here for her routine aptFeels that she is doing well, did do the labsHas URI sx since 2 weeks, +ve cough, no blood, no wheezing, no fevers or chillsNo N/V or diarrheaOV 04/18/19:Here for her routine aptShe did do the labsShe feels wellROS is negativeOV 08/15/19:Here for her routine aptShe did do the labsShe feels well at this timeShe continues to smoke OV 05/14/2020:Here for her routine aptNo new labsShe states that she is doing very well nowOV 10/03/2020:Here for her routine aptShe is doing well at this timeShe did do the labs and is here to review theseOV 02/06/2021:Here for her routine aptShe is doing very wellShe did do the labsOV 09/16/2021:Here for her routine aptShe is well and has done her labsOV 02/17/2022:Here for her routine f/uShe is doing wellShe did do the labs on 2OV 07/07/2022:Here for her f/u apt, she is doing well, she did do the labs on 07/03/2022 03/30/2023: Here for her f/u visit, does well at this time OV 06/22/2023: Here for her post hosp f/u visit, she was admitted and d/c [place] for [place], s/p stent, sent from [facility], now does well, no new labs OV 07/27/2023: Here for her f/u apt, she feels well today OV 03/07/2024: Here for her f/u apt and MWV, she is doing well today, she did do the labs on 03/02/2025 Ameena Jackson MD [address] [place] [address], [address] [id number], [place], [address], [facility] 03/07/2024 17:57:33 03/22/2024 text/html Here to oscar Corbett PMD:Dr. Emeterio Gandhi [facility] Hx:SmokerHTNHLDRev iewed social family and surgical historyHere to get labs, doing well otherwise OV 11/11/17:Here for her routine apt, doing well, she did do the labsIs doing well at this time OV 02/15/18:Here for her routine apt and MMVShe states that she is doing well at this timeNo recent labs done OV 08/16/18:Here for her routine 6 months aptShe states that he is doing well at this timeShe has not done any labs OV 12/20/18:Here for her routine aptFeels that she is doing well, did do the labsHas URI sx since 2 weeks, +ve cough, no blood, no wheezing, no fevers or chillsNo N/V or diarrheaOV 04/18/19:Here for her routine aptShe did do the labsShe feels wellROS is negativeOV 08/15/19:Here for her routine aptShe did do the labsShe feels well at this timeShe continues to smoke OV 05/14/2020:Here for her routine aptNo new labsShe states that she is doing very well nowOV 10/03/2020:Here for her routine aptShe is doing well at this timeShe did do the labs and is here to review theseOV 02/06/2021:Here for her routine aptShe is doing very wellShe did do the labsOV 09/16/2021:Here for her routine aptShe is well and has done her labsOV 02/17/2022:Here for her routine f/uShe is doing wellShe did do the labs on 2OV 07/07/2022:Here for her f/u apt, she is doing well, she did do the labs on 07/03/2022 03/30/2023: Here for her f/u visit, does well at this time OV 06/22/2023: Here for her post hosp f/u visit, she was admitted and d/c [place] for [place], s/p stent, sent from [facility], now does well, no new labs OV 07/27/2023: Here for her f/u apt, she feels well today OV 03/07/2024: Here for her f/u apt and MWV, she is doing well today, she did do the labs on 03/02/2025 OV 03/22/2024: Here for her ACVC/o URI sx, nasal congestion, no fever or chills, no chest pain or SOB, no wheezing, no headaches Ameena Jackson MD [address] [place] [address], [facility] [address], [place], [address], [place] [facility] 03/22/2024 17:11:21 07/06/2024 text/html Here to oscar Corbett PMD:Dr. Emeterio Gandhi [facility] Hx:SmokerHTNHLDRev iewed social family and surgical historyHere to get labs, doing well otherwise OV 11/11/17:Here for her routine apt, doing well, she did do the labsIs doing well at this time OV 02/15/18:Here for her routine apt and MMVShe states that she is doing well at this timeNo recent labs done OV 08/16/18:Here for her routine 6 months aptShe states that he is doing well at this timeShe has not done any labs OV 12/20/18:Here for her routine aptFeels that she is doing well, did do the labsHas URI sx since 2 weeks, +ve cough, no blood, no wheezing, no fevers or chillsNo N/V or diarrheaOV 04/18/19:Here for her routine aptShe did do the labsShe feels wellROS is negativeOV 08/15/19:Here for her routine aptShe did do the labsShe feels well at this timeShe continues to smoke OV 05/14/2020:Here for her routine aptNo new labsShe states that she is doing very well nowOV 10/03/2020:Here for her routine aptShe is doing well at this timeShe did do the labs and is here to review theseOV 02/06/2021:Here for her routine aptShe is doing very wellShe did do the labsOV 09/16/2021:Here for her routine aptShe is well and has done her labsOV 02/17/2022:Here for her routine f/uShe is doing wellShe did do the labs on 2OV 07/07/2022:Here for her f/u apt, she is doing well, she did do the labs on 07/03/2022 03/30/2023: Here for her f/u visit, does well at this time OV 06/22/2023: Here for her post hosp f/u visit, she was admitted and d/c [place] for [place], s/p stent, sent from [facility], now does well, no new labs OV 07/27/2023: Here for her f/u apt, she feels well today OV 03/07/2024: Here for her f/u apt and MWV, she is doing well today, she did do the labs on 03/02/2025 OV 03/22/2024: Here for her ACVC/o URI sx, nasal congestion, no fever or chills, no chest pain or SOB, no wheezing, no headaches OV 07/06/2024: Here for her f/u apt, she is doing very well today, she states that she was not taking her statin d/t muscle aches but is now wanting to take rosuvastatin Ameena aJckson MD [address], [address], [place], [address], [place] [facility] 07/06/2024 11:48:17 10/12/2024 text/html Here to oscar Corbett PMD:Dr. Emeterio Gandhi, [facility] Hx:SmokerHTNHLDRev iewed social family and surgical historyHere to get labs, doing well otherwise OV 11/11/17:Here for her routine apt, doing well, she did do the labsIs doing well at this time OV 02/15/18:Here for her routine apt and MMVShe states that she is doing well at this timeNo recent labs done OV 08/16/18:Here for her routine 6 months aptShe states that he is doing well at this timeShe has not done any labs OV 12/20/18:Here for her routine aptFeels that she is doing well, did do the labsHas URI sx since 2 weeks, +ve cough, no blood, no wheezing, no fevers or chillsNo N/V or diarrheaOV 04/18/19:Here for her routine aptShe did do the labsShe feels wellROS is negativeOV 08/15/19:Here for her routine aptShe did do the labsShe feels well at this timeShe continues to smoke OV 05/14/2020:Here for her routine aptNo new labsShe states that she is doing very well nowOV 10/03/2020:Here for her routine aptShe is doing well at this timeShe did do the labs and is here to review theseOV 02/06/2021:Here for her routine aptShe is doing very wellShe did do the labsOV 09/16/2021:Here for her routine aptShe is well and has done her labsOV 02/17/2022:Here for her routine f/uShe is doing wellShe did do the labs on 2OV 07/07/2022:Here for her f/u apt, she is doing well, she did do the labs on 07/03/2022 03/30/2023: Here for her f/u visit, does well at this time OV 06/22/2023: Here for her post hosp f/u visit, she was admitted and d/c [place] for [place], s/p stent, sent from [facility], now does well, no new labs OV 07/27/2023: Here for her f/u apt, she feels well today OV 03/07/2024: Here for her f/u apt and MWV, she is doing well today, she did do the labs on 03/02/2025 OV 03/22/2024: Here for her ACVC/o URI sx, nasal congestion, no fever or chills, no chest pain or SOB, no wheezing, no headaches OV 07/06/2024: Here for her f/u apt, she is doing very well today, she states that she was not taking her statin d/t muscle aches but is now wanting to take rosuvastatin OV 10/12/2024: Here for her f/u apt, she feels well today Ameena Jackson MD [address] [place] [address], [facility] [address], [place], [address], [place] [facility] 10/22/2024 16:19:22 OBGyn Episode No OBEpisode recorded.
--- OUTSIDE RECORDS SUMMARY | 2025-01-11 08:04 | XMS_ITS | CONTINUITY OF CARE DOCUMENT ---
Author Name maile gr Address Unknown Organization [facility] Address [address] [place] [address] Phone [phone] Care Team Providers Care Butadiene Converter Helper Name Role Phone Cedric FRASER, Bean Unavailable NAYLA BISWAS MD Unavailable NAYLA BISWAS MD Unavailable [phone] PROBLEMS Condition Status Date Provider Notes S/P Biotronik dc (MRI Safe) pm active Tiffany Pierce SYNCOPE AND COLLAPSE active Bean Hobbs HTN essential completed - Zechariah Velasquez MD Hypertension active ? Bean Steele MD Hyperlipidemia active ? Bean Steele MD AV block, complete active Bean Steele MD NSTEMI active Zechariah Velasquez MD CAD active Zechariah Velasquez MD Chest pain active Zechariah Velasquez MD Nicotine dependence active Kayla Ventimigl ia CUSTODIAL SUPERVISOR ENCOUNTERS Date Type Provider Location Encounter Diag nosis 6 - 7 In-person encounter Office Visit Bean Steele MD [facility] Nicotine dependence 6 - 7 In-person encounter Office Visit Bean Steele MD [facility] 8 - 8 In-person encounter Office Visit Zechariah Velasquez MD [facility] HTN essentialNSTEMICADChest pain 0 - 1 In-person encounter Office Visit Bean Steele MD [facility] AV block, complete 5 - 5 In-person encounter Office Visit Bean Steele MD [facility] 9 - 9 In-person encounter Office Visit Bean Steele MD [facility] 4 - 4 In-person encounter Office Visit Bean Steele MD [facility] 5 - 1 In-person encounter Office Visit Bean Steele MD [facility] 2 - 2 In-person encounter Office Visit Bean Steele MD [facility] 7 - 8 In-person encounter Office Visit Bean Steele MD [facility] 2 - 7 In-person encounter Office Visit Bean Steele MD [facility] SYNCOPE AND COLLAPSEHypertensionHyperlipidemia VITAL SIGNS Date Observation Value Provider Body Mass Index (Ratio) 28.66 kg/m2 Ant Steele MD blood pressure, cuff size regular [facility] blood pressure, diastolic 84 mm[Hg] [facility] blood pressure, systolic 154 mm[Hg] [facility] pulse rate 70 /min [facility] oxygen saturation, oximetry 97 % [facility] respiratory rate E&M 14 /min Jennifer Sana page weight E&M 183 [lb_av] [facility] height E&M 67 [in_i] [facility] Body Mass Index (Ratio) 28.66 kg/m2 Ant Steele MD blood pressure, cuff size regular Clyde rret blood pressure, diastolic 62 mm[Hg] Ja rret blood pressure, systolic 122 mm[Hg] Chuck ocampo pulse rate 61 /min Shahid respiratory rate E&M 12 /min oxygen saturation, oximetry 96 % Shahid weight E&M 183 [lb_av] Shahid height E&M 67 [in_i] Shahid Body Mass Index (Ratio) 28.19 kg/m2 Obed Velasquez MD weight E&M 180 [lb_av] Jeanette Davis pulse rate 72 /min Jeanette Davis respiratory rate E&M 18 /min Jeanette Davis blood pressure, cuff size regular luis antonio Davis blood pressure, diastolic 61 mm[Hg] luis antonio Davis blood pressure, systolic 137 mm[Hg] She neymar Davis oxygen saturation, oximetry 96 % Jeanette Davis height E&M 67 [in_i] Jeanette Davis Body Mass Index (Ratio) 29.22 kg/m2 Ant Steele MD blood pressure, diastolic 67 mm[Hg] Herlinda [facility] blood pressure, systolic 137 mm[Hg] Cintia Espinoza[facility]peace respiratory rate E&M 18 /min Luli velasquez blood pressure, diastolic 67 mm[Hg] St migue Stewart blood pressure, systolic 137 mm[Hg] Jt Stewart oxygen saturation, oximetry 96 % Luli Stewart pulse rate 74 /min Luli Stewart weight E&M 186.6 [lb_av] Luli Stewart height E&M 67 [in_i] Luli Stewart Body Mass Index (Ratio) 30.54 kg/m2 Ant Steele MD blood pressure, diastolic 89 mm[Hg] Ca therine Mario blood pressure, systolic 114 mm[Hg] Cat herine [place] oxygen saturation, oximetry 96 % Ree [place] respiratory rate E&M 14 /min Catheri ne Mario pulse rate 86 /min Ree [place] weight E&M 195 [lb_av] Ree [place] blood pressure, cuff size regular Ca therine Mario height E&M 67 [in_i] Ree Mario Body Mass Index (Ratio) 31.95 kg/m2 Ant Steele MD blood pressure, diastolic 69 mm[Hg] Cy ryan Hernandez blood pressure, systolic 142 mm[Hg] Ketty malik Hernandez pulse rate 81 /min Linette Lozadabel l oxygen saturation, oximetry 93 % Linette Hernandez respiratory rate E&M 16 /min Linette Hernandez blood pressure, cuff size regular Cy ryan Hernandez weight E&M 204 [lb_av] Linette Campbel l height E&M 67 [in_i] Linette Campbel l Body Mass Index (Ratio) 29.60 kg/m2 Ant Steele MD respiratory rate E&M 16 /min Tonsha Munoz blood pressure, diastolic 72 mm[Hg] To nsha Munoz blood pressure, systolic 144 mm[Hg] Ton sha Munoz blood pressure, resting No Tons rodrigez Munoz oxygen saturation, oximetry 97 % Tonsha Munoz pulse rate 68 /min Tonsha Munoz weight E&M 189 [lb_av] Tonsha Munoz height E&M 67 [in_i] Tonsha Munoz Body Mass Index (Ratio) 30.38 kg/m2 Ant Steele MD blood pressure, diastolic 70 mm[Hg] Da carlos Elizabeth blood pressure, systolic 122 mm[Hg] Dac ia Elizabeth oxygen saturation, oximetry 94 % Michaela Elizabeth respiratory rate E&M 16 /min Michaela V oss pulse rate 78 /min Michaela Elizabeth weight E&M 194 [lb_av] Michaela Elizabeth height E&M 67 [in_i] Michaela Elizabeth Body Mass Index (Ratio) 30.54 kg/m2 Ant Steele MD blood pressure, cuff size regular Ke rri Ayde blood pressure, diastolic 81 mm[Hg] Ke rri Ayde blood pressure, systolic 134 mm[Hg] Aron Messer oxygen saturation, oximetry 93 % Mackenzie Messer respiratory rate E&M 20 /min Mackenzie alexander pulse rate 75 /min Mackenzie Conklin er weight E&M 195 [lb_av] Mackenzie Rubin lder height E&M 67 [in_i] Mackenzie Rbuin er Body Mass Index (Ratio) 31.41 kg/m2 Ant Steele MD blood pressure, diastolic 77 mm[Hg] Kathe Gill blood pressure, systolic 132 mm[Hg] Gina Gill oxygen saturation, oximetry 97 % Alexa Gill respiratory rate E&M 18 /min Kel Gill pulse rate 73 /min Alexa cardozoon weight E&M 200.6 [lb_av] Alexa segal height E&M 67 [in_i] Alexa Bolton nson blood pressure, diastolic 96 mm[Hg] Ke rri Ayde blood pressure, systolic 162 mm[Hg] Aron Messer pulse rate 73 /min Mackenzie Gremily almanzarer oxygen saturation, oximetry 96 % Mackenzie Ayde respiratory rate E&M 16 /min Mackenzie Mendez sarahluis manuelkyle Body Mass Index (Ratio) 30.69 kg/m2 Tiffany Yehvijay weight E&M 196 [lb_av] Mackenzie Yehemily almanzarer height E&M 67 [in_i] Mackenzie Yehemily lder ALLERGIES Allergy Name Onset Date Reaction Criticality Status PCN Low Criticality active HISTORY OF MEDICATION USE Medication Status Instructions Dates Provider Indications Com ments atorvastatin 80 mg tablet active TAKE 1 TABLET AT BEDTIME Kayla Ventimiglia CUSTODIAL SUPERVISOR clopidogrel 75 mg tablet active TAKE 1 TABLET BY MOUTH EVERY DAY Kayla Ventimiglia [facility] aspirin 81 mg tablet,chewable active TAKE 1 TABLET BY MOUTH EVERY DAY Ilia Lemons carvedilol 3.125 mg tablet active TAKE 1 TABLET BY MOUTH TWICE DAILY Kayla Ventimiglia CUSTODIAL SUPERVISOR losartan 25 mg tablet active TAKE 1 TABLET BY MOUTH EVERY DAY Kayla Ventimiglia CUSTODIAL SUPERVISOR clopidogrel 75 mg tablet completed Take 1 tablet by mouth once a day - Kayla Ventimiglia CUSTODIAL SUPERVISOR atorvastatin 80 mg tablet completed Take 1 tablet by mouth once a day - Kayla Ventimiglia [facility] albuterol sulfate 90 mcg/actuation HFA aerosol inhaler active as needed Luli Stewart VITAMIN D TABLET active once a week Mackenzie Messer FOLIC ACID TABS completed Take 1 once a day - Shahid Gimenez VITAMIN E CAPSULE active Take 1 once a day Mackenzie Messer SOCIAL HISTORY Date Observation Value Provider drug use no Kayla skaggs [facility] personal history of marijuana use no Kayla WILLISP alcohol use no Jennifer Jauregui passive cigarette sm eliazar exposure no Jennifer Jauregui smoking/tobacco cess ation, patient education and counseling yes Jennifer Jauregui number of years as a smoker 30 a Jennifer Jauregui smoking history, tot al pack/day 3 cigs a day Jennifer Jauregui cigarette use yes Jennifer Jauregui smoking status Current every day smoker Jinny Jauregui social history reviewed E&M revi ewed - no changes required Bean Steele MD social history E&M Marital Statu s: Yamil cardoza: 4 O ccupation: Retired Smoking History: P atient currently smokes every day. Ilia Lemons smoking history, tot al pack/day 3 cigs a day Jeanette Davis cigarette use yes Jeanette Davis smoking status Current every day smoker S rodrigo Davis social history reviewed E&M revi ewed - no changes required Ilia Lemons social history E&M Marital Statu s: Yamil blaketanya: 4 O ccupation: Retired Smoking History: P atient currently smokes every day. P atient has been counseled to quit. Bean Steele MD social history reviewed E&M revi ewed - no changes required Bean Steele MD passive cigarette sm eliazar exposure no Luli Stewart smoking/tobacco cess ation, patient education and counseling yes Luli Stewart number of years as a smoker 30 a Luli Stewart smoking history, tot al pack/day 1/2 Luli Stewart cigarette use yes Luli Stewart smoking status Current every day smoker S aric Stewart social history E&M Marital Statu s: Yamil blakenitin: 4 O ccupation: Retired Smoking History: P atient currently smokes every day. P atient has been counseled to quit. Bean Steele MD social history reviewed E&M revi ewed - no changes required Bean Steele MD passive cigarette sm eliazar exposure no Ree [place] smoking/tobacco cess ation, patient education and counseling yes Ree Mario number of years as a smoker 30 a Ree Mario smoking history, tot al pack/day 1/2 Ree [place] cigarette use yes Ree [place] smoking status Current every day smoker Yamil grimes [place] social history E&M Marital Statu s: Yamil cardoza: 4 O ccupation: Retired Smoking History: P atient currently smokes every day. P atient has been counseled to quit. Bean Steele MD social history reviewed E&M revi ewed - no changes required Bean Steele MD passive cigarette sm eliazar exposure no Linette Hernandez smoking/tobacco cess ation, patient education and counseling yes Linette Hernandez number of years as a smoker 30 a Linette Hernandez smoking history, tot al pack/day 1/2 Linette Hernandez cigarette use yes Linette Christy watts smoking status Current every day smoker Yamil Hernandez social history E&M Marital Statu s: Yamil cardoza: 4 O ccupation: Retired Smoking History: P atient currently smokes every day. P atient has been counseled to quit. Bean Steele MD social history reviewed E&M revi ewed - no changes required Bean Steele MD passive cigarette sm eliazar exposure no Tonsha Munoz smoking/tobacco cess ation, patient education and counseling yes Tonsha Munoz number of years as a smoker 30 a Tonsha Munoz smoking history, tot al pack/day 1/2 Tonsha Munoz cigarette use yes Tonsha Munoz smoking status Current every day smoker T onsha Munoz social history E&M Marital Statu s: Yamil cardoza: 4 O ccupation: Retired Smoking History: Hermes lucas currently smokes every day. P lance has been counseled to quit. Bean Steele MD social history reviewed E&M revi ewed - no changes required Bean Steele MD alcohol use, average drinks per day social Michaela Elizabeth alcohol use yes Michaela Elizabeth smoking/tobacco cess ation, patient education and counseling yes Michaela Elizabeth passive cigarette sm eliazar exposure no Michaela Elizabeth number of years as a smoker 30 a Michaela Elizabeth smoking history, tot al pack/day 1/2 Michaela Elizabeth cigarette use yes Michaela Elizabeth smoking status Current every day smoker D ia Elizabeth social history reviewed E&M revi ewed - no changes required Bean Steele MD alcohol use, average drinks per day social Mackenzie Messer alcohol use yes Mackenzie barron smoking/tobacco cess ation, patient education and counseling yes Mackenzie Messer passive cigarette sm eliazar exposure no Mackenzie Messer number of years as a smoker 30 a Mackenzievinicius Messer smoking history, tot al pack/day 1/2 Mackenzie Messer cigarette use yes Mackenzie hernández smoking status Current every day smoker K chadwick Messer social history reviewed E&M revi ewed - no changes required Bean Steele MD alcohol use, average drinks per day social Alexa Gill alcohol use yes Alexa jacinto smoking/tobacco cess ation, patient education and counseling yes Alexa Gill passive cigarette sm eliazar exposure no Alexa Gill number of years as a smoker 30 a Alexa Gill smoking history, tot al pack/day 1/2 Alexa Jairo cigarette use yes Alexa segal smoking status Current every day smoker Sana Hammond Gill smoking/tobacco cess ation, patient education and counseling yes Bean Steele MD passive cigarette sm eliazar exposure no Bean Steele MD social history E&M Marital Statu s: Yamil cardoza: 4 O ccupation: Retired Bean Steele MD social history reviewed E&M revi ewed - no changes required Bean Steele MD pacemaker surgery, hx of yes Tai Steele MD alcohol use, average drinks per day social Mackenzie Messer alcohol use yes Mackenzie almanzarer number of years as a smoker 30 a Mackenzie Messer smoking history, tot al pack/day 1/2 Mackenzie Messer cigarette use yes Mackenzie hernández smoking status Current every day smoker K chadwick Messer FUNCTIONAL STATUS Date Observation Value Provider HRA, CV Assess/Plan, Angina (inactive) Management Plan continue current therapy Kaylamarcell Rodriguez CUSTODIAL SUPERVISOR FAMILY HISTORY Family Member Condition Father Family History Unkno wn Mother Family History of Co ronary Artery Disease: Mother Family History of Di abetes: INSURANCE PROVIDERS Payer name Policy type / Coverage type [place]im[employer] red democrat ID [facility] Other AARP MEDICARE ADVANTAGE HMO-POS O [id number] ADVANCE DIRECTIVES Name Date DISCUSSED - NO DECISION MADE TREATMENT PLAN Date Name Performer [id number],Bean Warren MD [id number],Bean Warren MD [id number],Bean Warren MD [id number],Bean Warren MD [id number],B, Bean Pemberton n [id number],B, Ilia Fitch i [id number],S, Ilia Fitch i [id number],S, Ilia Fitch i [id number],S, Ilia Fitch i [id number],B, Bean Pemberton n [id number],B, Bean Pemberton n [place] [id number],B, Bean Pemberton n [place] [id number],S, Bean Pemberton n [place] [id number],S, Bean Pemberton n [place] [id number],S, Bean Pemberton n [place] [id number],B, Bean Pemberton n [place] Cardiology:cessation encouraged [facility] Cardiology:remains o n statin therapy T he following medications were removed from the medication list: Atorvastatin 80 Mg Tablet (Atorvastatin) ..... Take 1 tablet by mouth once a day & #13;Her updated medication list for this problem includes: Atorvastatin 80 Mg Tablet (Atorvastatin) ..... Take 1 tablet at [facility]time [facility] Cardiology:BP slight ly above goal t ypically well controlled w ill have her monitor at home H er updated medication list for this problem includes: Losartan 25 Mg Tablet (Losartan) ..... Take 1 tablet by mouth every day Carvedilol 3.125 Mg Tablet (Carvedilol) ..... Take 1 tablet by mouth twice daily Aspirin 81 Mg Tablet,chewable (Aspirin) ..... Take 1 tablet by mouth every day [facility] Cardiology:no c/o an y chest pain or SOB c ontinues on asa, plavix and statin T he following medications were removed from the medication list: Clopidogrel 75 Mg Tablet (Clopidogrel) ..... Take 1 tablet by mouth once a day Her updated medication list for this problem includes: Carvedilol 3.125 Mg Tablet (Carvedilol) ..... Take 1 tablet by mouth twice daily Clopidogrel 75 Mg Tablet (Clopidogrel) ..... Take 1 tablet by mouth every day Aspirin 81 Mg Tablet,chewable (Aspirin) ..... Take 1 tablet by mouth every day Kayla COOL Cardiology Bean Steele MD Cardiology Bean Steele MD Cardiology Bean Steele MD Cardiology Bean Steele MD Cardiology Bean Steele MD Cardiology Ilia Ahmedzai Cardiology Ilia Ahmedzai Cardiology Ilia Ahmedzai Cardiology Ilia Castillomedyuei Cardiology Bean Steele MD Cardiology Bean Steele MD Cardiology Bean Steele MD Cardiology Bean Steele MD Cardiology Bean Steele MD Cardiology Bean Steele MD Cardiology Bean Steele MD Cardiology follow up Bean palma MD Cardiology follow up Bean palma MD Cardiology follow up Bean palma MD Cardiology Bean Steele MD Cardiology Bean Steele MD Cardiology Bean Steele MD Cardiology follow up Bean palma MD Cardiology follow up Bean palma MD Cardiology follow up Bean palma MD Cardiology Follow up Bean palma MD Cardiology Follow up Bean palma MD Cardiology Follow up Bean palma MD Cardiology Bean Steele MD Cardiology Bean Steele MD Cardiology Bean Steele MD [facility] Hospital Follow up Ra claudio Steele MD [facility] Follow up Ra claudio Steele [facility] Follow up Ra claudio Steele MD [facility] Follow up Ra claudio Steele MD Date Name BASIC METABOLIC PANE L W/EGFR LIPID PANEL Lipoprotein (a) CRP, high sensitivit y PROBNP, N TERMINAL Complete Echo Complete Echo Complete Echo STR - Adenosine HISTORY OF PROCEDURES Procedure Date Procedure Name Provider Procedure Notes S tatus EKG Bean Steele MD complete d EKG Bean Steele MD complete d EKG Bean Steele MD complete d ICM Interrogation, Remote (Prof) Bean Steele MD INTERROGATION EVAL REMOTE </30 D CV MNTR SYS completed Pacemaker Interrogation, Remote (Tech) Bean Steele MD INTERROGATION REMOTE </90 D DISTRICT SERVICE MANAGER REVIEW completed Pacemaker Interrogation, Remote (Prof) Bean Steele MD INTERROGATION EVAL REMOTE </90 D 1/2/EMERGENCY MEDICAL SERVICE MANAGER LEAD P completed ICM Interrogation, Remote (Prof) Bean Steele MD INTERROGATION EVAL REMOTE </30 D CV MNTR SYS completed ICM Interrogation, Remote (Tech) Bean Steele MD INTERROGATION EVAL REMOTE </30 D TECH REVIEW completed ICM Interrogation, Remote (Prof) Bean Steele MD INTERROGATION EVAL REMOTE </30 D CV MNTR SYS completed ICM Interrogation, Remote (Tech) Bean Steele MD INTERROGATION EVAL REMOTE </30 D TECH REVIEW completed ICM Interrogation, Remote (Prof) Bean Steele MD INTERROGATION EVAL REMOTE </30 D CV MNTR SYS completed Pacemaker Interrogation, Remote (Tech) Bean Steele MD INTERROGATION REMOTE </90 D DISTRICT SERVICE MANAGER REVIEW completed Pacemaker Interrogation, Remote (Prof) Bean Steele MD INTERROGATION EVAL REMOTE </90 D 1/2/EMERGENCY MEDICAL SERVICE MANAGER LEAD P completed ICM Interrogation, Remote (Prof) Bean Steele MD INTERROGATION EVAL REMOTE </30 D CV MNTR SYS completed ICM Interrogation, Remote (Tech) Bean Steele MD INTERROGATION EVAL REMOTE </30 D TECH REVIEW completed ICM Interrogation, Remote (Prof) Bean Steele MD INTERROGATION EVAL REMOTE </30 D CV MNTR SYS completed ICM Interrogation, Remote (Tech) Bean Steele MD INTERROGATION EVAL REMOTE </30 D TECH REVIEW completed EKG Bean Steele MD complete d ICM Interrogation, Remote (Prof) Bean Steele MD INTERROGATION EVAL REMOTE </30 D CV MNTR SYS completed Pacemaker Interrogation, Remote (Tech) Bean Steele MD INTERROGATION REMOTE </90 D DISTRICT SERVICE MANAGER REVIEW completed Pacemaker Interrogation, Remote (Prof) Bean Steele MD INTERROGATION EVAL REMOTE </90 D 1/2/EMERGENCY MEDICAL SERVICE MANAGER LEAD P completed ICM Interrogation, Remote (Prof) Bean Steele MD INTERROGATION EVAL REMOTE </30 D CV MNTR SYS completed ICM Interrogation, Remote (Tech) Bean Steele MD INTERROGATION EVAL REMOTE </30 D TECH REVIEW completed ICM Interrogation, Remote (Prof) Bean Steele MD INTERROGATION EVAL REMOTE </30 D CV MNTR SYS completed ICM Interrogation, Remote (Tech) Bean Steele MD INTERROGATION EVAL REMOTE </30 D TECH REVIEW completed ICM Interrogation, Remote (Prof) Bean Steele MD INTERROGATION EVAL REMOTE </30 D CV MNTR SYS completed Pacemaker Interrogation, Remote (Tech) Bean Steele MD INTERROGATION REMOTE </90 D DISTRICT SERVICE MANAGER REVIEW completed Pacemaker Interrogation, Remote (Prof) Bean Steele MD INTERROGATION EVAL REMOTE </90 D 1/2/EMERGENCY MEDICAL SERVICE MANAGER LEAD P completed ICM Interrogation, Remote (Prof) Bean Steele MD INTERROGATION EVAL REMOTE </30 D CV MNTR SYS completed ICM Interrogation, Remote (Tech) Bean Steele MD INTERROGATION EVAL REMOTE </30 D TECH REVIEW completed ICM Interrogation, Remote (Prof) Bean Steele MD INTERROGATION EVAL REMOTE </30 D CV MNTR SYS completed ICM Interrogation, Remote (Tech) Bean Steele MD INTERROGATION EVAL REMOTE </30 D TECH REVIEW completed ICM Interrogation, Remote (Prof) Bean Steeel MD INTERROGATION EVAL REMOTE </30 D CV MNTR SYS completed ICM Interrogation, Remote (Tech) Bean Steele MD INTERROGATION EVAL REMOTE </30 D TECH REVIEW completed ICM Interrogation, Remote (Prof) Bean Steele MD INTERROGATION EVAL REMOTE </30 D CV MNTR SYS completed Pacemaker Interrogation, Remote (Tech) Bean Steele MD INTERROGATION REMOTE </90 D DISTRICT SERVICE MANAGER REVIEW completed Pacemaker Interrogation, Remote (Prof) Bean Steele MD INTERROGATION EVAL REMOTE </90 D 1/2/EMERGENCY MEDICAL SERVICE MANAGER LEAD P completed ICM Interrogation, Remote (Prof) Bean Steele MD INTERROGATION EVAL REMOTE </30 D CV MNTR SYS completed ICM Interrogation, Remote (Tech) Bean Steele MD INTERROGATION EVAL REMOTE </30 D TECH REVIEW completed ICM Interrogation, Remote (Prof) Bean Steele MD INTERROGATION EVAL REMOTE </30 D CV MNTR SYS completed ICM Interrogation, Remote (Tech) Bean Steele MD INTERROGATION EVAL REMOTE </30 D TECH REVIEW completed ICM Interrogation, Remote (Prof) Bean Steele MD INTERROGATION EVAL REMOTE </30 D CV MNTR SYS completed Pacemaker Interrogation, Remote (Tech) Bean Steele MD INTERROGATION REMOTE </90 D DISTRICT SERVICE MANAGER REVIEW completed Pacemaker Interrogation, Remote (Prof) Bean Steele MD INTERROGATION EVAL REMOTE </90 D 1/2/EMERGENCY MEDICAL SERVICE MANAGER LEAD P completed EKG Bean Steele MD complete d SNOMED-CT: [id number] Current Medications Documented Bean Steele MD completed ICM Interrogation, Remote (Prof) Bean Steele MD INTERROGATION EVAL REMOTE </30 D CV MNTR SYS completed ICM Interrogation, Remote (Tech) Bean Steele MD INTERROGATION EVAL REMOTE </30 D TECH REVIEW completed ICM Interrogation, Remote (Prof) Bean Steele MD INTERROGATION EVAL REMOTE </30 D CV MNTR SYS completed ICM Interrogation, Remote (Tech) Bean Steele MD INTERROGATION EVAL REMOTE </30 D TECH REVIEW completed ICM Interrogation, Remote (Prof) Bean Steele MD INTERROGATION EVAL REMOTE </30 D CV MNTR SYS completed Pacemaker Interrogation, Remote (Tech) Bean Steele MD INTERROGATION REMOTE </90 D DISTRICT SERVICE MANAGER REVIEW completed Pacemaker Interrogation, Remote (Prof) Bean Stelee MD INTERROGATION EVAL REMOTE </90 D 1/2/EMERGENCY MEDICAL SERVICE MANAGER LEAD P completed ICM Interrogation, Remote (Prof) Bean Steele MD INTERROGATION EVAL REMOTE </30 D CV MNTR SYS completed ICM Interrogation, Remote (Tech) Bean Steele MD INTERROGATION EVAL REMOTE </30 D TECH REVIEW completed ICM Interrogation, Remote (Prof) Bean Steele MD INTERROGATION EVAL REMOTE </30 D CV MNTR SYS completed ICM Interrogation, Remote (Tech) Bean Steele MD INTERROGATION EVAL REMOTE </30 D TECH REVIEW completed ICM Interrogation, Remote (Prof) Bean Steele MD INTERROGATION EVAL REMOTE </30 D CV MNTR SYS completed Pacemaker Interrogation, Remote (Tech) Bean Steele MD INTERROGATION REMOTE </90 D DISTRICT SERVICE MANAGER REVIEW completed Pacemaker Interrogation, Remote (Prof) Bean Steele MD INTERROGATION EVAL REMOTE </90 D 1/2/EMERGENCY MEDICAL SERVICE MANAGER LEAD P completed ICM Interrogation, Remote (Prof) Bean Steele MD INTERROGATION EVAL REMOTE </30 D CV MNTR SYS completed ICM Interrogation, Remote (Tech) Bean Steele MD INTERROGATION EVAL REMOTE </30 D TECH REVIEW completed ICM Interrogation, Remote (Prof) Bean Steele MD INTERROGATION EVAL REMOTE </30 D CV MNTR SYS completed ICM Interrogation, Remote (Tech) Bean Steele MD INTERROGATION EVAL REMOTE </30 D TECH REVIEW completed ICM Interrogation, Remote (Prof) Bean Setele MD INTERROGATION EVAL REMOTE </30 D CV MNTR SYS completed Pacemaker Interrogation, Remote (Tech) Bean Steele MD INTERROGATION REMOTE </90 D DISTRICT SERVICE MANAGER REVIEW completed Pacemaker Interrogation, Remote (Prof) Bean Steele MD INTERROGATION EVAL REMOTE </90 D 1/2/EMERGENCY MEDICAL SERVICE MANAGER LEAD P completed SNOMED-CT: [id number] Current Medications Documented Bean Steele MD completed ICM Interrogation, Remote (Prof) Bean Steele MD INTERROGATION EVAL REMOTE </30 D CV MNTR SYS completed ICM Interrogation, Remote (Tech) Bean Steele MD INTERROGATION EVAL REMOTE </30 D TECH REVIEW completed ICM Interrogation, Remote (Prof) Bean Steele MD INTERROGATION EVAL REMOTE </30 D CV MNTR SYS completed ICM Interrogation, Remote (Tech) Bean Steele MD INTERROGATION EVAL REMOTE </30 D TECH REVIEW completed ICM Interrogation, Remote (Prof) Bean Steele MD INTERROGATION EVAL REMOTE </30 D CV MNTR SYS completed Pacemaker Interrogation, Remote (Tech) Bean Steele MD INTERROGATION REMOTE </90 D DISTRICT SERVICE MANAGER REVIEW completed Pacemaker Interrogation, Remote (Prof) Bean Steele MD INTERROGATION EVAL REMOTE </90 D 1/2/EMERGENCY MEDICAL SERVICE MANAGER LEAD P completed ICM Interrogation, Remote (Prof) Bean Steele MD INTERROGATION EVAL REMOTE </30 D CV MNTR SYS completed ICM Interrogation, Remote (Tech) Bean Steele MD INTERROGATION EVAL REMOTE </30 D TECH REVIEW completed ICM Interrogation, Remote (Prof) Bean Steele MD INTERROGATION EVAL REMOTE </30 D CV MNTR SYS completed ICM Interrogation, Remote (Tech) Bean Steele MD INTERROGATION EVAL REMOTE </30 D TECH REVIEW completed Stress EKG Pilo Santos MD completed Regadenoson, 4 units Bean Steele MD completed Cardiolite, 2 units Bean Steele MD completed SPECT Images Logan Dove MD complete d SNOMED-CT: [id number] Smoking Cessation Counseling Bean Steele MD completed EKG Bean Steele MD complete d SNOMED-CT: [id number] Current Medications Documented Bean Steele MD completed
--- OUTSIDE RECORDS SUMMARY | 2025-01-11 08:04 | XMS_ITS | Patient Health Summary ---
Author Organization [facility] Address [address] [place] [address] Care Team Providers Care Grapple Operator Name Role Phone Ameena Jackson MD Primary Care Provider Note from [facility],non-owned Affiliates and Associated Physician Practices is amultiple site organization consisting of ambulatory clinics and hospital sitesin [place], [place], [place] and [place]. This disclosure is being madepursuant to the Care Everywhere program and may not contain all information available regarding this patient. Last updated 18.[facility] Allergies * Penicillins(Rash) -Medium Criticality Medications * Be aware that medications may not be up to date on this document. Alwaysverify current medications with the patient. * acetaminophen (Tylenol) 325 MG tablet(Started 06/14/2023) Take 2 (two) tablets by mouth every 6 hours as needed Maximum allowable Acetaminophen amount = 4 Grams (4000 mg) / 24 hours. * aspirin (Aspirin) 81 MG chew tablet(Started 06/14/2023) Take 1 (one) tablet by mouth once daily * albuterol-ipratropium (Duo-Neb) 0.5-2.5 (3) MG/3ML nebulizer solution(Started 06/14/2023) Inhale 3 mL by mouth 4 times daily for 30 days * atorvastatin (Lipitor) 80 MG tablet(Started 06/14/2023) Take 1 (one) tablet by mouth at bedtime * losartan (Cozaar) 25 MG tablet(Started 06/14/2023) Take 1 (one) tablet by mouth once daily * carvedilol (Coreg) 3.125 MG tablet(Started 06/14/2023) Take 1 (one) tablet by mouth 2 times daily with morning and evening meal * clopidogrel (plaVIX) 75 MG tablet(Started 06/14/2023) Take 1 (one) tablet by mouth once daily * nicotine (Nicoderm CQ) 14 MG/24HR patch(Started 06/14/2023) Apply 1 (one) patch to skin once daily Active Problems Problem Noted Date Diagnosed Date [...] and heating? Not hard at all 06/13/2023 [facility] - Occupational Stress Questionnaire Answer Date Recorded [...] place to sleep or slept in a detention (including now)? No 06/13/2023 Sex and Gender [...] Mass Index 29.05 06/14/2023 8:49 AM CDT Medical Devices Implanted Type Area Cargo Trimmer Device Identifier Shelf Expiration Date Model / Serial / Lot Sys Cor Stent Sng Xd Mr 3mm 20mm Dlv Sys Implanted:Qty: 1 on 06/11/2023 by Raudel Terrell MD at [facility] [id number] 06/01/2024 [id number] 300 / NA / [id number] Procedures * CARDIAC RHYTHM STRIP ORDER(Performed 06/15/2023) * CARDIAC PROCEDURE ORDER(Performed 06/15/2023) * ECHO COMPLETE(Performed 06/14/2023) Performed for NSTEMI (non-ST elevated myocardial infarction) ([facility]) * EKG 12-LEAD(Performed 06/12/2023) Performed for NSTEMI (non-ST elevated myocardial infarction) ([facility]) * BASIC METABOLIC PANEL (CALCIUM TOTAL)(Performed 06/12/2023) * CBC W AUTO DIFFERENTIAL(Performed 06/12/2023) * PTT(Performed 06/11/2023) * EKG 12-LEAD(Performed 06/11/2023) Performed for NSTEMI (non-ST elevated myocardial infarction) ([facility]) * ACT LR - POCT ([facility])(Performed 06/11/2023) * CCL CORONARY STENT(Performed 06/11/2023) Performed for NSTEMI (non-ST elevated myocardial infarction) ([facility]) * CCL LEFT HEART CATH(Performed 06/11/2023) Performed for NSTEMI (non-ST elevated myocardial infarction) ([facility]) * ACT LR - POCT ([facility])(Performed 06/11/2023) * ACT LR - POCT ([facility])(Performed 06/11/2023) Results * CARDIAC RHYTHM STRIP ORDER (06/15/2023 9:07 PM CDT) Narrative 06/15/2023 9:07 PM CDT Ordered by an unspecified provider. Scanned Document CARDIAC SERVICES ORD ERABLES * CARDIAC PROCEDURE ORDER (06/15/2023 2:45 AM CDT) Narrative 06/15/2023 2:45 AM CDT Ordered by an unspecified provider. Scanned Document CARDIAC SERVICES ORD ERABLES * ECHO COMPLETE (06/14/2023 12:12 PM CDT) BSA 1.6311525 [id number] m2 [facility] CV FUJI PACS LV biplane EF 60 54 - 74 % [facility]SM CV FUJI PACS LV A2C EF 61 52 - 76 % [facility] CV FUJ I PACS LV A4C EF 62 46 - 78 % [facility] CV FUJ I PACS LVOT stroke vol 83.07 cm3 SSM CV FUJI PACS LV stroke vol 2D teich 78.442 ml SSM CV FUJI PACS LV stroke vol index A4C MOD 69.024 ml SSM CV FUJI PACS LVIDd 5.14 3.8 - 5.2 cm SSM CV FUJI PACS LVIDs 3.40 2.2 - 3.5 cm SSM CV FUJI PACS IVSd 2D 1.093 0.6 - 0.9 cm SSM CV FUJI PACS LVPWd 1.15 cm SSM CV FUJ I PACS Fractional Shortening 2D 34 28 - 44 % SSM CV FUJI PACS LV ESV BP 38.278 14 - 42 mL SSM CV FUJI PACS LV ESV index BP 19.4 8 - 24 mL/m2 SSM CV FUJI PACS LV ESV A2C 41.974 10 - 54 mL SSM CV FUJI PACS LV EDV BP 96.233 mL SSM CV FUJ I PACS LV ESV A4C 32.399 12 - 60 mL SSM CV FUJI PACS LV EDV index BP 48.8 29 - 61 mL/m2 SSM CV FUJI PACS LV EDV A2C 82.582 41 - 133 mL SSM CV FUJI PACS LV EDV A4C 110.998 mL SSM CV FU JI PACS LV ESV 2D 47.338 14 - 42 mL SSM CV FUJI PACS LV EDV 2D 125.78 46 - 106 mL SSM CV FUJI PACS LVOT diam 2.1 cm SSM CV FUJ I PACS LVOT area 3.46 cm2 SSM CV FUJ I PACS LV RWT 0.446 SSM CV FUJ I PACS LV Dasilva A2C 8.255 cm SSM CV F UJI PACS LV Dasliva A4C 8.031 cm SSM CV F UJI PACS IVS/LVPW 0.954 SSM CV [facility] I PACS LV mass 2D 216.06126 [id number] 66 - 150 g SSM CV FUJI PACS LV mass index 2D 109.75 44 - 88 g/m2 [facility] E pk zhang 58.284 cm/s SSM CV F UJI PACS MV avg E/e' ratio 10.23 SS M CV FUJI PACS MV A pk zhang 81.31 cm/s SSM CV F UJI PACS MV E A ratio 0.72 SSM CV FUJI PACS MV E' lateral zhang 5.804 cm/s SS M CV FUJI PACS MV DT 245 ms SSM CV FUJ I PACS MV E' septal zhang 5.599 cm/s SSM CV FUJI PACS MV E/e' septal 10.41 SSM C V FUJI PACS MV E/e' lateral 10.042 SSM CV FUJI PACS LVOT pk zhang 1.16 m/s SSM CV F UJI PACS LVOT mn zhang 0.67 m/s SSM CV F UJI PACS LVOT mn grad 2.4 mmHg SSM CV FUJI PACS LVOT Cardiac Output 5.013 l/min SSM CV FUJI PACS LA ESV A2C MOD Index 38 ml/m2 SSM CV FUJI PACS LA ESV A4C MOD Index 17 ml/m2 SSM CV FUJI PACS LA vol BP A-L 51.521 mL SSM CV FUJI PACS TAPSE 2.429 1.7 cm SSM CV FUJ I PACS RA vol index 19 mL/m2 SSM CV FUJI PACS RA area 15.296 cm2 SSM CV FUJ I PACS AV mn grad 4 mmHg SSM CV FU JI PACS AV pk grad 9 mmHg SSM CV FU JI PACS AV mn zhang 0.96 m/s SSM CV FUJ I PACS AV pk zhang 1.49 m/s SSM CV FUJ I PACS AV VTI 30.28 cm SSM CV FUJ I PACS LVOT pk grad 5.402 mmHg SSM CV FUJI PACS LVOT VTI 23.995 cm SSM CV FUJ I PACS AV area planimetry 2.74 cm2 SSM CV FUJI PACS AV area index 1.4 cm2/m2 SSM CV FUJI PACS AV area cont VTI 2.7 cm2 SSM CV FUJI PACS AV area pk zhang 2.6 cm2 SSM C V FUJI PACS AV Doppler zhang index pk zhang 0.78 SSM CV FUJI PACS Dimensionless Index 0.792 SSM CV FUJI PACS MV PHT 71 ms SSM CV FUJ I PACS MV area PHT 3.10 cm2 SSM CV F UJI PACS MV decel slope 238.119 cm/s2 SSM C V FUJI PACS PV pk zhang 79.566 cm/s SSM CV FUJ I PACS PV pk grad 3 mmHg SSM CV FU JI PACS Max Age Predicted HR 140 SSM CV FUJI PACS Target HR 119 SSM CV FUJ I PACS [id number] 6.296 cm SSM CV FUJ I PACS [id number] 6.834 cm SSM CV FUJ I PACS LA Size 4.119 cm SSM CV FUJ I PACS LV stroke vol BP 57.955 mL SSM CV FUJI PACS LVIDs index 1.72 1.3 - 2.1 cm/m2 SSM CV FUJI PACS LV LVIDd index 2.60 2.3 - 3.1 cm/m2 SSM CV FUJI PACS Anatomical Region Laterality Modality Ultrasound Narrative 06/14/2023 1:24 PM CDT Left Ventricle: Left ventricle size is normal. Normal wall thickness. Normal systolic function with a visually estimated EF of 60 - 65%. Normal wall motion. Grade I diastolic dysfunction with normal left atrial pressure. Left Ventricle Left ventricle size is normal. Normal wall thickness. Normal systolic function with a visually estimated EF of 60 - 65%. Normal wall motion. Grade I diastolic dysfunction with normal left atrial pressure. Right Ventricle Right ventricle size is normal. Normal systolic function. Left Atrium Left atrium is mildly dilated. Right Atrium Right atrium size is normal. IVC/SVC IVC diameter is less than or equal to 21 mm and decreases greater than 50% during inspiration; therefore the estimated right atrial pressure is normal (~3 mmHg). Mitral Valve Valve structure is normal. No restricted motion. Trace regurgitation. No stenosis. Tricuspid Valve Valve structure is normal. No restricted motion. Trace regurgitation. No stenosis. Aortic Valve Valve structure is trileaflet. No restricted motion. No regurgitation. No stenosis. Pulmonic Valve Valve structure is normal. No restricted motion. No regurgitation. No stenosis. Ascending Aorta Normal sized sinus of Valsalva (aortic root) and ascending aorta. Pericardium No pericardial effusion. Study Details Study quality was fair. A complete 2D, color Doppler, spectral Doppler and M- mode echocardiogram was performed. The apical, parasternal, subcostal and suprasternal views were obtained. Procedure Note Raudel Terrell MD - 06/14/2023 Left Ventricle: Left ventricle size is normal. Normal wall thickness.Normal systolic function with a visually estimated EF of 60 - 65%. Normalwall motion. Grade I diastolic dysfunction with normal left atrialpressure. Raudel Terrell MD ECHO CUPID * EKG 12-LEAD (06/12/2023 7:51 AM CDT) Only the most recent of2 resultswithin the time period is included. Ventricular Rate 67 BPM [facility] Atrial Rate 67 BPM [facility] P-R Interval 212 ms [facility] QRS Duration ms 196 ms [facility] Q-T Interval ms 502 ms [facility] QTC Calculation (Bezet) 530 ms [facility] Calculated P [place] 69 degrees [facility] Calculated R [place] -87 degrees [facility] Calculated T [place] 90 degrees [facility] Interpretation EKG Ventricular -paced rhythm Confirmed by RAUDEL TERRELL MD ([id number]) on 06/14/2023 8:33:05 PM [facility] 06/12/2023 7:51 AM CDT 06/14/2023 8:33 PM CDT Raudel Terrell MD ECG ORDERABLES [facility] * CBC W AUTO DIFFERENTIAL (06/12/2023 5:16 AM CDT) WBC 9.2 4.4 - 10.7 x10E9/L 06/12/2023 5:42 AM CDT [facility] WBC Corrected 06/12/2023 5:42 AM CDT [facility] RBC 4.35 3.80 - 5.20 x10E12/L 06/12/2023 5:42 AM CDT [facility] Hemoglobin 12.7 12.0 - 15.6 gm/dL 06/12/2023 5:42 AM CDT [facility] Hematocrit 39.3 35.9 - 45.5 % 06/12/2023 5:42 AM CDT [facility] MCV 90.3 80.7 - 98.3 fl 06/12/2023 5:42 AM CDT [facility] MCH 29.2 26.7 - 34.0 pg 06/12/2023 5:42 AM CDT [facility] MCHC 32.3 30.8 - 35.9 gm/dL 06/12/2023 5:42 AM CDT [facility] Platelet Count 226 153 - 416 x10E9/L 06/12/2023 5:42 AM CDT [facility] RDW-CV 13.6 12.1 - 14.9 % 06/12/2023 5:42 AM CDT [facility] MPV 10.5 9.4 - 12.9 fl 06/12/2023 5:42 AM CDT [facility] Neutrophils % 66.9 44.0 - 73.0 % 06/12/2023 5:42 AM CDT [facility] Lymphocytes % 21.3 20.0 - 43.0 % 06/12/2023 5:42 AM CDT [facility] Monocytes % 9.9 5.0 - 13.0 % 06/12/2023 5:42 AM CDT [facility] Eosinophils % 1.3 0.0 - 6.0 % 06/12/2023 5:42 AM CDT [facility] Basophils % 0.4 0.0 - 2.0 % 06/12/2023 5:42 AM CDT [facility] Immature Granulocytes 0.2 0 - 1 % 06/12/2023 5:42 AM CDT [facility] Neutrophil Absolute 6.11 2.01 - 7.14 x10E9/L 06/12/2023 5:42 AM CDT [facility] Lymphocytes Absolute 1.95 1.07 - 3.94 x10E9/L 06/12/2023 5:42 AM CDT [facility] Monocytes Absolute 0.91 0.26 - 1.07 x10E9/L 06/12/2023 5:42 AM CDT [facility] Eosinophils Absolute 0.12 0 - 0.47 x10E9/L 06/12/2023 5:42 AM CDT [facility] Basophils Absolute 0.04 0 - 0.08 x10E9/L 06/12/2023 5:42 AM CDT [facility] Immature Granulocytes Absolute 0.02 0.00 - 0.06 x10E9/L 06/12/2023 5:42 AM CDT [facility] nRBC Auto 0 /100 WBC 06/12/2023 5:42 AM CDT [facility] Blood BLOOD SPECIMEN / Unknown Venipuncture / Unknown 06/12/2023 5:16 AM CDT 06/12/2023 5:21 AM CDT Raudel Terrell MD LAB - HEMATOLOGY ORD ERABLES [facility] [address] [place] [address] * (ABNORMAL) BASIC METABOLIC PANEL (CALCIUM TOTAL) (06/12/2023 5:16 AM CDT) [facility] Glucose 94 70 - 105 mg/dL 06/12/2023 5:46 AM CDT [facility] Sodium 139 136 - 145 mmol/L 06/12/2023 5:46 AM CDT [facility] Potassium 4.4 3.5 - 5.1 mmol/L 06/12/2023 5:46 AM CDT [facility] Chloride 106 98 - 107 mmol/L 06/12/2023 5:46 AM CDT [facility] CO2 26 22 - 29 mmol/L 06/12/2023 5:46 AM CDT [facility] Calcium 8.6 8.4 - 10.4 mg/dL 06/12/2023 5:46 AM CDT [facility] Anion Gap 7 6 - 16 mmol/L 06/12/2023 5:46 AM CDT [facility] BUN 21 7 - 26 mg/dL 06/12/2023 5:46 AM CDT [facility] Creatinine 0.82 0.57 - 1.11 mg/dL 06/12/2023 5:46 AM CDT [facility] eGFR by CKD-EPI 72(L) >=90 mL/min/1.7 3 m2 06/12/2023 5:46 AM CDT [facility] Blood BLOOD SPECIMEN / Unknown Venipuncture / Unknown 06/12/2023 5:16 AM CDT 06/12/2023 5:21 AM CDT Raudel Terrell MD LAB - CHEMISTRY [facility] Organization Address City/State/[facility] Co de Phone Number [facility] [address] [place] [address] * PTT (06/11/2023 11:01 PM CDT) PTT 33.9 23.0 - 38.4 sec 06/11/2023 11:25 PM CDT [facility] Blood BLOOD SPECIMEN / Unknown Venipuncture / Unknown 06/11/2023 11:01 PM CDT 06/11/2023 11:04 PM CDT Narrative [facility] - 06/11/2023 11:25 PM CDT Heparin Therapeutic Range for PTT: 69.0 - 110.0 seconds. Raudel Terrell MD LAB - COAGULATION OR DERABLES Performing Organization Address City/[facility] Co de Phone Number [facility] [address] [place] [address] * (ABNORMAL) ACT LR - POCT ([facility]) (06/11/2023 6:58 PM CDT) Only the most recent of3 resultswithin the time period is included. ACT LR 261(H) 125 - 187 sec 06/15/2023 4:45 PM CDT [facility] Blood BLOOD SPECIMEN / Unknown 06/11/2023 6:58 PM CDT 06/15/2023 4:45 PM CDT Kalyan Carlson MD LAB - COAGULATION OR DERABLES Performing Organization Address [facility] Co de Phone Number [facility] [address] [place] [address] * CCL LEFT HEART CATH, CCL CORONARY STENT (06/11/2023 6:57 PM CDT) Anatomical Region Laterality Modality X-Ray Angiograph y Narrative 07/06/2023 7:03 AM CDT Three-vessel coronary disease, with severe one-vessel involvement. Preserved LV systolic function Successful PCI of the left circumflex artery Plan recommendation: 1. IV hydration 2. Aggrastat bolus 3. Dual anti-platelet regimen 4. Aggressive risk modification medical management. Reason for Procedure The patient is 82-year-old lady, who has presented with chest pain, non ST- elevation myocardial function, transferred to [facility], referred for urgent cardiac catheterization. Procedure Details Estimated Blood Loss: Minimal mL Procedure Details and Comments: In view of the finding coronary proceed progress revascularization of the left circumflex artery. Description of procedure: Five Swiss sheath was changed to a 7 Swiss sheath a 7 Swiss CLS 3.5 guiding catheter was advanced cc successfully cannulated the left main artery 0.014 run-through wire was advanced guiding catheter 6 across the total occlusion, a moderate to large obtuse marginal system was detected. Pre dilatation was performed using 3.0 mm, 12 mm long emerge balloon. A 3.0 mm, 20 mm long, Synergy drug-eluting stent was advanced wire status stenosis deployed with 11 atmosphere inflation stent balloon. Postdilatation was performed using a 3.25 mm, 15 mm long NC emerge balloon. A 0 percent noted UMER grade 3 flow established. Coronary Findings Diagnostic Dominance: Right Left Main: Left and right coronary arteries are mildly calcified. Left main is normal. Left Anterior Descending: The left descending artery has mid up to 40-50 percent stenosis. The LAD is tapering distally. Left Circumflex: The left circumflex artery is subtotally occluded in the proximal segment with hazy segment suggestion of thrombosis. Right Coronary Artery: Right coronary artery has distal up to 40 percent stenosis. There is diffuse plaque elsewhere Intervention No interventions have been documented. Wall Motion left ventriculography reveals overall preserved LV systolic function. It is hand-held injection. Correlation with ECHO recommended Raudel Terrell MD CV CARDIAC CATH VENANCIO [facility] [employer] Care Teams Grapple Operator Relationship Specialty Start Date End Date Ameena Jackson MD [address] [phone] PCP - General Internal Medicine 06/12/23
--- OUTSIDE RECORDS SUMMARY | 2025-01-11 08:04 | XMS_ITS | Referral Summary ---
Author Organization [facility] Address [address] [place] [address] Care Team Providers Care Stockroom Worker Name Role Phone Ameena Jackson MD Primary Care Provider Source Comments [facility],non-owned Affiliates and Associated Physician Practices is amultiple site organization consisting of ambulatory clinics and hospital sitesin [place], [place], [place] and [place]. This disclosure is being madepursuant to the Care Everywhere program and may not contain all information available regarding this patient. Last updated 18.[facility] [employer] Allergies Active Allergy Reactions Criticality Noted Date [...] and heating? Not hard at all 06/13/2023 [facility] - Occupational Stress [...] place to sleep or slept in a longterm (including now)? No 06/13/2023 Sex and Gender [...] Mass Index 29.05 06/14/2023 8:49 AM CDT Functional Status Functional Status Response Date of Assess ment Is person deaf or have serious hearing difficult y? No 06/12/2023 Is person blind or have serious difficulty seein g? No 06/12/2023 Does person have serious dif ficulty walking/climbing stairs? No 06/12/2023 Does person have difficulty dressing/bathing? No 06/12/2023 Does person have difficulty doing errands alone? No 06/12/2023 Cognitive Status Response Date of Assessm ent Does person have difficulty concentrating/remembering/making decisions? No 06/12/2023 Plan of Treatment Not on file Medical Devices Implanted Type Area Cheese Processor Device Identifier Shelf Expiration Date Model / Serial / Lot Sys Cor Stent Sng Xd Mr 3mm 20mm Dlv Sys Implanted:Qty: 1 on 06/11/2023 by Geoff Josue MD at [facility] [id number] 06/01/2024 [id number] 300 / NA / [id number] Advance Directives * Full Code (Latest Code Status on File) Date Activated Date Inactivated Comments 06/11/2023 6:59 PM 06/14/2023 4:00 PM Care Teams Stockroom Worker Relationship Specialty Start Date End Date Ameena Jackson MD [address] [phone] PCP - General Internal Medicine 06/12/23
[2025-01-11 08:39] LABS: Basophils Percent Auto 0.4 % (0.2-1.2); Eosinophils Absolute Auto 0.2 K/mm3 (0-0.3); Eosinophils Percent Auto 2.7 % (0-4.4); Hematocrit 41.2 % (37.0-47.0); Hemoglobin 13.5 g/dL (12.0-15.0); Immature Granulocyte Absolute 0.03 K/mm3 (0.00-0.031); Immature Granulocyte Percent A 0.4 % (0-0.5); Lymphocytes Absolute Auto 1.67 K/mm3 (0.9-3.2); Lymphocytes Percent Auto 23.4 % (18.3-44.2); Mean Corpuscular HGB Conc 32.8 g/dl (32-36); Mean Corpuscular Hemoglobin 30.1 pg (26-34); Mean Platelet Volume 10.1 fl (7.4-10.4); Monocytes Absolute Auto 0.7 K/mm3 (0.1-0.6); Monocytes Percent Auto 9.1 % (2.6-8.5); Neutrophils Absolute Auto 4.6 K/mm3 (1.3-6.7); Platelet Count Result 218 k/mm3 (150-375); Red Blood Count 4.48 M/mm3 (4.2-5.4); Red Cell Distribution Width 13.9 % (11.5-14.5); White Blood Count 7.1 K/mm3 (4.5-10.0)
[2025-01-11 09:04] LABS: Alanine Aminotransferase 22 U/L (6-35); Albumin Level 4.1 g/dL (3.5-5.1); Alkaline Phosphatase 54 U/L (38-126); Anion Gap 7 mmol/L (4-12); Aspartate Amino Transferase 22 U/L (14-36); Bilirubin,Total 0.6 mg/dL (0.2-1.3); Blood Urea Nitrogen 27 mg/dL (7-17); Calcium 9.4 mg/dL (8.4-10.2); Carbon Dioxide 29 mmol/L (22-30); Chloride 105 mmol/L (98-107); Cholesterol 136 mg/dL (0-200); Estimated Glomerular Filt Rate > 60; Glucose 122 mg/dL (65-110); HDL Direct 43 mg/dL; Potassium 4.3 mmol/L (3.4-5.0); Sodium 141 mmol/L (137-145); Triglycerides 109 mg/dL (<150)
[2025-01-11 09:07] LABS: Creatinine Urine 238.4 mg/dL
[2025-01-11 09:12] LABS: MALB Creatinine Ratio 7.8 mg/g (0-30); Microalbumin Urine Random 18.7 mg/L (0-16.7)
[2025-01-11 09:26] LABS: LDL Cholesterol Direct 63 mg/dL
[2025-01-11 09:29] LABS: Free T4 Free Thyroxine 1.15 ng/dL (0.78-2.19); Vitamin D 25 Hydroxy 55.2 ng/mL
[2025-01-11 09:33] LABS: Hemoglobin A1C 5.8 % (<5.7)
== END 2025-01-11 07:52 | disposition home or self-care (01) ==
PROVIDERS: PCP Internal Medicine; Visit Provider Internal Medicine
DX: E55.9 Vitamin D deficiency, unspecified (principal); E11.9 Type 2 diabetes mellitus without complications; E78.5 Hyperlipidemia, unspecified
CPT/HCPCS: 36415; 80053; 80061; 82043; 82306; 83036; 84439; 84443; 85025

== ENCOUNTER 2025-06-21 07:37 | Outpatient (CLI) | payer MEDICARE, SELFPAY ==
--- OUTSIDE RECORDS SUMMARY | 2007-07-20 06:32 | XMS_ITS | Continuity of Care Document ---
Author Organization [facility] [place] [address] [place] [address] [address] [place] [address] Phone Care Team Providers Care Orthopedic Dentist Name Role Phone [facility] Unavailable Unavail able Kleber Bautista Unavailable Unavailable Procedures Procedure Date Progressive Lens, Plastic Frames Deluxe UV Coat Scratch Resistant Coating Eye Exam, New Patient Refraction Advance Directives Directive Yes / No Effective Date File Name No Information Encounters Encounter Description Practice Location Reason(s) For Visit Diagnoses Date Provider Providers Copied on Encounter [facility], [address] [place] [address] [address], [place], [place], [id number], [place] tel:[phone] [facility] No Information Jul- 9200 7 [facility] . [address] [facility], [facility] [address], [place], [id number], [place]. tel:[phone] Referring Provider: Moy Parker, [address] [place] [address] [address], [place], [address]. tel:[phone] sulting Provider: Kleber Bautista, [address] [place], [place] [address]ate [facility], [place], [address]. tel:[phone] [facility], [address] [place] [address] [address], [place], [place], [id number], [place] tel:[phone] [facility] No Information Sep-1 4-200 7 Saavedra ROBB Winter. [address] [place] [address] , [address], [place], [address], [place]. tel:[phone] Family History Family Member Type Diagnosis Age At Onset No Information Payers Payer name Insurance type Covered democrat ID Nathalia warren(s) [employer] Plan [id number] Social History Type Description Quantity Date Captured Comments Sex Female Smoking Status No Information Chief Complaint And Reason For Visit No Information Reason For Referral Reason For Referral No Information History Of Present Illness Encounter Date Complaint History Of Prese nt Illness No Information Functional Status Date Functional Assessmen t No Information Instructions Date Instruction Additional Infor mation No Information Assessments Type Assessment Date No Information Patient Care Teams Name Effective Dates (start - stop) Status Members No Information
--- OUTSIDE RECORDS SUMMARY | 2025-06-21 07:51 | XMS_ITS | Clinical Summary ---
Author Organization [facility] Address [address] [place] [address] Care Team Providers Care Shuttle Driver Name Role Phone Ameena Jackson MD Primary Care Provider Source Comments [facility],non-owned Affiliates and Associated Physician Practices is amultiple site organization consisting of ambulatory clinics and hospital sitesin [place], [place], [place] and [place]. This disclosure is being madepursuant to the Care Everywhere program and may not contain all information available regarding this patient. Last updated 18.[facility] Allergies Active Allergy Reactions Criticality Noted Date Comments Penicillins Rash Medium 06/11/2023 Medications * Be aware that medications may not be up to date on this document. Alwaysverify current medications with the patient. acetaminophen (Tylenol) 325 MG tablet Take 2 (two) tablets by mouth every 6 hours as needed Maximum allowable Acetaminophen amount = 4 Grams (4000 mg) / 24 hours. 3 Active aspirin (Aspirin) 81 MG chew tablet Take 1 (one) tablet by mouth once daily 30 tablet 3 Active albuterol-ipra tropium (Duo-Neb) 0.5-2.5 (3) MG/3ML nebulizer solution Inhale 3 mL by mouth 4 times daily for 30 days 360 mL 3 Active atorvastatin (Lipitor) 80 MG tablet Take 1 (one) tablet by mouth at bedtime 30 tablet 3 Active losartan (Cozaar) 25 MG tablet Take 1 (one) tablet by mouth once daily 30 tablet 3 Active carvedilol (Coreg) 3.125 MG tablet Take 1 (one) tablet by mouth 2 times daily with morning and evening meal 60 tablet 3 Active clopidogrel (plaVIX) 75 MG tablet Take 1 (one) tablet by mouth once daily 30 tablet 3 Active nicotine (Nicoderm CQ) 14 MG/24HR patchIndicatio ns:Tobacco use disorder Apply 1 (one) patch to skin once daily 30 patch 3 Active Active Problems Problem Noted Date Diagnosed [...] and heating? Not hard at all 06/13/2023 [facility] - Occupational Stress [...] place to sleep or slept in a snf (including now)? No 06/13/2023 Comments Unknown Sex and Gender Information Value Date Recorded Sex Assigned at Not on file Legal Sex Female 12:09 PM CDT Gender Identity Not on file Sexual Orientation [...] 8:49 AM CDT Height 167.6 cm (5' 6) 06/14/2023 8:49 AM CDT Body Mass Index [...] VACCINE ( season) 2024 10/30/2021, 01/19/2021, 12/29/2020 DEPRESSION SCREENING 11/01/2024 MEDICARE AWV CALENDAR YEAR 2024 INFLUENZA VACCINE (#1) 2025 2, 09/16/2021, 10/23/2019, Additional history exists HEPATITIS B VACCINE Aged Out No longe [...] this topic Medical Devices Implanted Type Area Television Repairer Device Identifier Shelf Expiration Date Model / Serial / Lot Sys Cor Stent Sng Xd Mr 3mm 20mm Dlv Sys Implanted:Qty: 1 on 06/11/2023 by Geoff Josue MD at [facility] [id number] 06/01/2024 [id number] / NA / [id number] Insurance [facility] MANAGED MEDICARE ADV Advance Directives * Full Code (Latest Code Status on File) Date Activated Date Inactivated Comments 06/11/2023 6:59 PM 06/14/2023 4:00 PM Care Teams Shuttle Driver Relationship Specialty Start Date End Date Ameena Jackson MD [address] [place] [address] PCP - General Internal Medicine 06/12/23
[2025-06-21 08:18] LABS: Hematocrit 41.0 % (37.0-47.0); Hemoglobin 13.2 g/dL (12.0-15.0); Immature Granulocyte Percent A 0.2 % (0-0.5); Lymphocytes Absolute Auto 1.69 K/mm3 (0.9-3.2); Mean Corpuscular HGB Conc 32.2 g/dl (32-36); Mean Corpuscular Hemoglobin 29.9 pg (26-34); Mean Corpuscular Volume 93.0 fl (80-100); Nucleated Red Blood Cells Absolute Auto 0.000 K/mm3 (0.0-0.012); Nucleated Red Blood Cells Perc 0.0 % (0.0-0.2); Platelet Count Result 204 k/mm3 (150-375); Red Blood Count 4.41 M/mm3 (4.2-5.4); White Blood Count 6.4 K/mm3 (4.5-10.0)
[2025-06-21 08:21] LABS: Hemoglobin A1C 5.8 % (<5.7)
[2025-06-21 08:38] LABS: Alanine Aminotransferase 23 U/L (6-35); Albumin Level 3.9 g/dL (3.5-5.1); Alkaline Phosphatase 44 U/L (38-126); Anion Gap 6 mmol/L (4-12); Aspartate Amino Transferase 30 U/L (14-36); Bilirubin,Total 0.5 mg/dL (0.2-1.3); Blood Urea Nitrogen 20 mg/dL (7-17); Calcium 9.6 mg/dL (8.4-10.2); Carbon Dioxide 29 mmol/L (22-30); Chloride 106 mmol/L (98-107); Cholesterol 112 mg/dL (0-200); Estimated Glomerular Filt Rate > 60; Glucose 111 mg/dL (65-110); HDL Direct 38 mg/dL; Potassium 4.0 mmol/L (3.4-5.0); Sodium 141 mmol/L (137-145); Total Protein 6.6 g/dL (6.3-8.2); Triglycerides 149 mg/dL (<150)
[2025-06-21 09:14] LABS: Thyroid Stimulating Hormone 1.630 uIU/mL (0.465-4.680)
[2025-06-21 09:31] LABS: MALB Creatinine Ratio 11.9 mg/g (0-30)
[2025-06-21 09:48] LABS: Free T4 Free Thyroxine 0.97 ng/dL (0.78-2.19)
== END 2025-06-21 07:38 | disposition home or self-care (01) ==
LOC: ANHLAB 07:39
PROVIDERS: PCP Internal Medicine; Visit Provider Internal Medicine
DX: E55.9 Vitamin D deficiency, unspecified (principal); E11.9 Type 2 diabetes mellitus without complications; E78.5 Hyperlipidemia, unspecified
CPT/HCPCS: 36415; 80053; 80061; 82043; 82306; 83036; 84439; 84443; 85025